=== PATIENT | male | born 1950 | race Caucasian/White ===

== ENCOUNTER 2020-03-01 07:39 | Emergency (ER) | payer OTHER ==
[~2020-03-01] VITALS: Ht 185.4 cm; Wt 108.9 kg
[~2020-03-01 07:39] MED LIST: CODE30; DIGOX250 MCG PO; LOPE2C PO; Lyrica25 MG PO; METO25ER; ONDA4 PO; Synthroid25 MCG PO; WARF5 PO; WARF7.5 PO
[2020-03-01 08:14] LABS: BASOPHILS ABSOLUTE AUTO 0.03 K/mm3 (0.00-0.23); BASOPHILS PERCENT AUTO 1 % (0-2); EOSINOPHILS ABSOLUTE AUTO 0.13 K/mm3 (0.00-0.68); EOSINOPHILS PERCENT AUTO 2 % (0-6); Hematocrit 39.7 % (37.0-53.0); Hemoglobin 12.6 g/dL (13.5-17.5); IMMATURE GRAN ABSOLUTE AUTO 0.02 K/mm3 (0.00-0.10); IMMATURE GRAN PERCENT AUTO 0 % (0-1); LYMPHOCYTES ABSOLUTE AUTO 0.82 K/mm3 (0.84-5.20); LYMPHOCYTES PERCENT AUTO 15 % (21-46); MONOCYTES ABSOLUTE AUTO 0.49 K/mm3 (0.16-1.47); MONOCYTES PERCENT AUTO 9 % (4-13); Mean Corpuscular HGB 31.3 pg (26.0-34.0); Mean Corpuscular HGB Conc 31.7 g/dL (31.5-36.5); Mean Corpuscular Volume 99 fL (80-100); Mean Platelet Volume 11.3 fL (9.1-12.4); NEUTROPHILS ABSOLUTE AUTO 4.14 K/mm3 (1.96-9.15); NEUTROPHILS PERCENT AUTO 74 % (41-73); Platelet Count 104 K/mm3 (150-400); RDW Coefficient Variation 14.4 % (11.7-14.2); Red Blood Cell Count 4.03 M/mm3 (4.30-5.90); White Blood Cell Count 5.63 K/mm3 (4.00-11.30)
[2020-03-01 08:34] LABS: Prothrombin Time Results 40.3 Sec (9.7-11.5)
[2020-03-01 08:38] LABS: International Normalized Ratio 4.08
== END 2020-03-01 11:58 | disposition home or self-care (01) ==
LOC: ER 07:39
PROVIDERS: Emergency Medicine
DX: K91.840 Postprocedural hemorrhage of a digestive system organ or structure following a digestive system procedure (principal); R79.1 Abnormal coagulation profile; Y84.8 Other medical procedures as the cause of abnormal reaction of the patient, or of later complication, without mention of misadventure at the time of the procedure; I48.91 Unspecified atrial fibrillation; F17.200 Nicotine dependence, unspecified, uncomplicated; Z79.01 Long term (current) use of anticoagulants; Z79.899 Other long term (current) drug therapy
CPT/HCPCS: 36415; 64400; 85025; 85610; 99283-25

== ENCOUNTER 2020-09-02 11:46 | Emergency (ER) | payer OTHER, MEDICARE ==
[~2020-09-02] VITALS: Ht 185.4 cm; Wt 108.9 kg
[2020-09-02 12:57] LABS: BASOPHILS ABSOLUTE AUTO 0.02 K/mm3 (0.00-0.23); BASOPHILS PERCENT AUTO 0 % (0-2); EOSINOPHILS ABSOLUTE AUTO 0.01 K/mm3 (0.00-0.68); EOSINOPHILS PERCENT AUTO 0 % (0-6); Hematocrit 40.1 % (37.0-53.0); Hemoglobin 13.8 g/dL (13.5-17.5); IMMATURE GRAN ABSOLUTE AUTO 0.06 K/mm3 (0.00-0.10); IMMATURE GRAN PERCENT AUTO 1 % (0-1); LYMPHOCYTES ABSOLUTE AUTO 0.82 K/mm3 (0.84-5.20); LYMPHOCYTES PERCENT AUTO 10 % (21-46); MONOCYTES ABSOLUTE AUTO 0.86 K/mm3 (0.16-1.47); MONOCYTES PERCENT AUTO 11 % (4-13); Mean Corpuscular HGB 31.3 pg (26.0-34.0); Mean Corpuscular HGB Conc 34.4 g/dL (31.5-36.5); Mean Corpuscular Volume 91 fL (80-100); Mean Platelet Volume 12.5 fL (9.1-12.4); NEUTROPHILS ABSOLUTE AUTO 6.24 K/mm3 (1.96-9.15); NEUTROPHILS PERCENT AUTO 78 % (41-73); Platelet Count 116 K/mm3 (150-400); RDW Coefficient Variation 15.5 % (11.7-14.2); RDW Standard Deviation 51.9 fL (35.1-46.3); Red Blood Cell Count 4.41 M/mm3 (4.30-5.90); White Blood Cell Count 8.01 K/mm3 (4.00-11.30)
[2020-09-02 12:58] LABS: Creatine Kinase MB 3.7 ng/mL (0.0-3.6); Creatine Kinase MB Index 1.7 (0.0-4.0); Troponin I 0.058 ng/mL (0.000-0.040)
[2020-09-02 13:06] LABS: Albumin, Blood 3.9 g/dL (3.4-5.0); Albumin/Globulin Ratio 1.2 (0.8-1.8); Calcium, Blood 8.3 mg/dL (8.5-10.1); Creatinine, Blood 13.4 mg/dL (0.60-1.20); Globulin, Blood 3.3 g/dL (2.2-4.0); Potassium, Blood 4.1 mmol/L (3.5-5.5); Total Protein, Blood 7.2 g/dL (6.4-8.2)
[2020-09-02] MEDS ORDERED: Prinivil10 MG PO (13:41)
[2020-09-02] MEDS ORDERED: METO25 PO (13:41)
[2020-09-02] MEDS ORDERED: LANOXIN125 MCG PO (13:41)
[2020-09-02] MEDS ORDERED: VITAMIN D31000 UNI1 PO (13:41)
[2020-09-02] MEDS ORDERED: TRAZ50 PO (13:42)
[2020-09-02] MEDS ORDERED: PREG150 PO (13:42)
[2020-09-02] MEDS ORDERED: ZOLOFT100 M1 PO (13:42)
[2020-09-02] MEDS ORDERED: WARF5 PO (13:43)
[2020-09-02] MEDS ORDERED: Synthroid200 MCG PO (13:44)
[2020-09-02] MEDS ORDERED: NITR.4SL SL (13:44)
[2020-09-02] MEDS ORDERED: Vitamin B Comple1 EA PO (13:44)
[2020-09-02 13:54] LABS: Prothrombin Time Results >90.0 Sec (9.7-11.5)
[2020-09-02 13:56] LABS: International Normalized Ratio >10.00
[2020-09-02 14:33] LABS: Source, Urine Clean Catch
[2020-09-02 16:26] LABS: Appearance, Urine Hazy (Clear); Blood, Urine 3+ (Neg); Color, Urine Amber (P-Yellow); Glucose Qualitative, Urine Neg (Neg); Ketones, Urine 1+ (Neg); Leukocyte Esterase, Urine 1+ (Neg); Nitrite, Urine Neg (Neg); Protein, Urine 2+ (Neg); Urobilinogen, Urine 1+ (Normal)
[2020-09-02 17:27] LABS: Bilirubin, Urine 1+ (Neg)
[2020-09-02 17:31] LABS: Bacteria Few /hpf; Squamous Epithelial Cells Few /hpf (Few)
[2020-09-02 18:22] LABS: Hematocrit 37.7 % (37.0-53.0); Hemoglobin 12.6 g/dL (13.5-17.5); Mean Corpuscular HGB 30.5 pg (26.0-34.0); Mean Corpuscular HGB Conc 33.4 g/dL (31.5-36.5); Mean Corpuscular Volume 91 fL (80-100); Platelet Count 103 K/mm3 (150-400); RDW Coefficient Variation 15.8 % (11.7-14.2); RDW Standard Deviation 53.1 fL (35.1-46.3); Red Blood Cell Count 4.13 M/mm3 (4.30-5.90); White Blood Cell Count 5.86 K/mm3 (4.00-11.30)
[2020-09-02 18:29] LABS: Base Excess Venous -9.3 mmol/L; Bicarbonate Venous 17.8 mmol/L (24.0-30.0); PO2 Venous 176 mmHg (38-42); pH Blood Venous 7.29 (7.34-7.37)
[2020-09-02 19:13] LABS: International Normalized Ratio >10.00; Prothrombin Time Results >90.0 Sec (9.7-11.5)
[2020-09-02 19:43] LABS: Creatine Kinase MB 5.1 ng/mL (0.0-3.6)
[2020-09-02 19:55] LABS: Albumin, Blood 3.5 g/dL (3.4-5.0); Albumin/Globulin Ratio 1.1 (0.8-1.8); Bilirubin, Total 1.1 mg/dL (0.1-1.0); Bun/Creatinine Ratio 10.3 (12.0-20.0); Calcium, Blood 7.8 mg/dL (8.5-10.1); Creatinine, Blood 11.5 mg/dL (0.60-1.20); Globulin, Blood 3.2 g/dL (2.2-4.0); Total Protein, Blood 6.7 g/dL (6.4-8.2)
[2020-09-02 21:01] LABS: Digoxin (Lanoxin) 0.12 ug/mL (0.80-2.00)
[2020-09-02 21:49] LABS: SARS-Cov-2 (COVID-19) PCR, MMC NEGATIVE (NEGATIVE)
== END 2020-09-02 22:43 | disposition short-term general hospital (02) ==
LOC: ER 11:46
PROVIDERS: Emergency Medicine; Internal Medicine; Nurse Practitioner Acute Care
DX: N17.9 Acute kidney failure, unspecified (principal); R79.1 Abnormal coagulation profile; I48.91 Unspecified atrial fibrillation; K92.2 Gastrointestinal hemorrhage, unspecified; R31.9 Hematuria, unspecified; Z79.01 Long term (current) use of anticoagulants; Z79.899 Other long term (current) drug therapy; Z20.822 Contact with and (suspected) exposure to COVID-19
CPT/HCPCS: 36415; 51702; 70450; 71045; 72125; 76770; 80053; 80162; 81001; 82272; 82550; 82553; 82803; 83605; 83735; 84100; 84484; 84550; 85025; 85027; 85610; 85730; 86900; 86901; 87086; 93005; 93010; 96361-59; 96374-59; 99285-25; A9270; C9113; J3430; J7030; P9059; U0004

== ENCOUNTER 2020-10-01 22:27 | Emergency (ER) | payer OTHER ==
[~2020-10-01] VITALS: Ht 185.4 cm; Wt 108.9 kg
[~2020-10-01 22:27] MED LIST changes: +LANOXIN125 MCG PO; +METO25 PO; +NITR.4SL SL; +PREG150 PO; +Prinivil10 MG PO; +Synthroid200 MCG PO; +TRAZ50 PO; +VITAMIN D31000 UNI1 PO; +Vitamin B Comple1 EA PO; +ZOLOFT100 M1 PO
[2020-10-01] MEDS ORDERED: PANT40 (23:05)
[2020-10-01] MEDS ORDERED: METR500 (23:05)
[2020-10-01] MEDS ORDERED: LORA.5 PO (23:06)
[2020-10-01] MEDS ORDERED: BACL10 PO (23:07)
[2020-10-01] MEDS ORDERED: OXAYDO5 M1 PO (23:08)
[2020-10-02 00:27] LABS: International Normalized Ratio 5.29
== END 2020-10-02 01:23 | disposition home or self-care (01) ==
LOC: ER 22:27
PROVIDERS: Student in an Organized Health Care Education/Training Program
DX: R79.1 Abnormal coagulation profile (principal); I10 Essential (primary) hypertension; F17.200 Nicotine dependence, unspecified, uncomplicated; E03.9 Hypothyroidism, unspecified; Z88.8 Allergy status to other drugs, medicaments and biological substances; Z79.890 Hormone replacement therapy; I48.91 Unspecified atrial fibrillation; Z79.01 Long term (current) use of anticoagulants; Z79.899 Other long term (current) drug therapy
CPT/HCPCS: 36415; 85610; 99283

== ENCOUNTER 2021-09-06 18:34 | Inpatient (IN) | payer OTHER ==
[~2021-09-06] VITALS: Ht 182.9 cm; Wt 95.3 kg
[~2021-09-06 18:34] MED LIST changes: +BACL10 PO; +LORA.5 PO; +METR500; +OXAYDO5 M1 PO; +PANT40
[2021-09-06 19:13] LABS: BASOPHILS ABSOLUTE AUTO 0.05 K/mm3 (0.00-0.23); BASOPHILS PERCENT AUTO 1 % (0-2); EOSINOPHILS ABSOLUTE AUTO 0.21 K/mm3 (0.00-0.68); EOSINOPHILS PERCENT AUTO 4 % (0-6); Hematocrit 50.9 % (37.0-53.0); Hemoglobin 16.1 g/dL (13.5-17.5); IMMATURE GRAN ABSOLUTE AUTO 0.01 K/mm3 (0.00-0.10); IMMATURE GRAN PERCENT AUTO 0 % (0-1); LYMPHOCYTES ABSOLUTE AUTO 1.43 K/mm3 (0.84-5.20); LYMPHOCYTES PERCENT AUTO 28 % (21-46); MONOCYTES PERCENT AUTO 14 % (4-13); Mean Corpuscular HGB 27.9 pg (26.0-34.0); Mean Corpuscular HGB Conc 31.6 g/dL (31.5-36.5); Mean Corpuscular Volume 88 fL (80-100); Mean Platelet Volume 9.8 fL (9.1-12.4); NEUTROPHILS ABSOLUTE AUTO 2.74 K/mm3 (1.96-9.15); NEUTROPHILS PERCENT AUTO 53 % (41-73); Platelet Count 155 K/mm3 (150-400); RDW Coefficient Variation 16.6 % (11.7-14.2); RDW Standard Deviation 53.6 fL (35.1-46.3); Red Blood Cell Count 5.77 M/mm3 (4.30-5.90); White Blood Cell Count 5.14 K/mm3 (4.00-11.30)
[2021-09-06 19:28] LABS: Alanine Aminotransfer (ALT/SGP 19 U/L (12-78); Albumin, Blood 4.3 g/dL (3.4-5.0); Albumin/Globulin Ratio 1.2 (0.8-1.8); Alk Phos 153 U/L (50-136); Anion Gap 5 mmol/L (6-16); Aspartate Aminotrans (AST/SGOT 26 U/L (12-37); Bilirubin, Total 0.9 mg/dL (0.1-1.0); Blood Urea Nitrogen 13 mg/dL (8-24); Bun/Creatinine Ratio 17.1 (12.0-20.0); CO2, Blood 31 mmol/L (21-32); Calcium, Blood 9.5 mg/dL (8.5-10.1); Chloride, Blood 103 mmol/L (98-108); Creatinine, Blood 0.76 mg/dL (0.60-1.20); Ethanol (Alcohol), Blood, Med <3 mg/dL; Globulin, Blood 3.7 g/dL (2.2-4.0); Glomerular Filtration Rate 97 (60-); Glucose, Blood 114 mg/dL (70-99); Potassium, Blood 3.7 mmol/L (3.5-5.5); Sodium, Blood 139 mmol/L (136-145)
[2021-09-06 19:56] LABS: International Normalized Ratio 3.59; Prothrombin Time Results 34.7 Sec (9.7-11.5)
[2021-09-06 20:17] LABS: Influenza A, PCR NEGATIVE (NEGATIVE); Influenza B, PCR NEGATIVE (NEGATIVE); Resp Syncytial Virus, PCR NEGATIVE (NEGATIVE)
[2021-09-06 20:23] LABS: SARS-Cov-2 (COVID-19) PCR, MMC POSITIVE (NEGATIVE)
[2021-09-06 20:36] LABS: Source, Urine Foley catheter
[2021-09-06 20:38] LABS: Bilirubin, Urine Neg (Neg); Blood, Urine 3+ (Neg); Glucose Qualitative, Urine Neg (Neg); Ketones, Urine Neg (Neg); Leukocyte Esterase, Urine Neg (Neg); Nitrite, Urine Neg (Neg); Protein, Urine 4+ (Neg); Urobilinogen, Urine NORM (Normal)
[2021-09-06 20:51] LABS: Appearance, Urine Clear (Clear); Color, Urine Yellow (P-Yellow)
[2021-09-06 20:52] LABS: Amorphous Light (0-Heavy); Bacteria Not Seen /hpf; Mucus Light (0-Heavy); Squamous Epithelial Cells Not Seen /hpf (Few); White Blood Cells, Urine Not Seen /hpf (0-5)
[2021-09-06 22:30] LABS: CHOL/HDL RATIO 3.6; Cholesterol 175 mg/dL (50-200); HDL Cholesterol 49 mg/dL (>39); LDL/HDL RATIO 2.1; Low Density Lipoprotein Chol 103 mg/dL (0-110); Triglycerides 113 mg/dL (30-160); Very Low Density Lipoprot Chol 22 mg/dL (6-32)
--- NOTE | 2021-09-06 23:20 | NUR ---
PATIENT ARRIVED TO ICU 12 ON PORTABLE VENT WITH RT AND BEDSIDE. PATIENT TRANSFERRED TO ICU BED WITH SLIDER SHEET AND PLACED ON ICU MONITORS, AND PLACED ON VET BY RT. ETT IN PLACE WITH VENT SET AC/VC+ 14, TV 500, PEEP 5, FIO2 TITRATING DOWN TO 25% ABRASIONS SEEN TO BOTTOM LIP AND TIP OF NOSE, BLOODY ORAL SECRETIONS. PROPOFOL 40 MCG AND CARDIZEM 5 MG/HR INFUSING FROM ED. PATIENT MOVING BOTH ARMS AND BOTH LEGS TO STIMULI, NOT OPENING EYES AND NOT FOLLOWING DIRECTIONS. SHERRI BUT SLUGGISH.
[2021-09-07 03:36] LABS: PCO2 Arterial 36.9 mmHg (35-45); pH Blood Arterial 7.52 (7.35-7.45)
[2021-09-07] MEDS ORDERED: HYDCHL25 PO (03:36)
[2021-09-07] MEDS ORDERED: POTA10T PO (03:37)
[2021-09-07 03:38] LABS: PO2 Arterial 282 mmHg (80-100)
[2021-09-07] MEDS ORDERED: PREG150 PO (03:38)
[2021-09-07 04:49] LABS: BASOPHILS ABSOLUTE AUTO 0.01 K/mm3 (0.00-0.23); BASOPHILS PERCENT AUTO 0 % (0-2); EOSINOPHILS ABSOLUTE AUTO 0.01 K/mm3 (0.00-0.68); EOSINOPHILS PERCENT AUTO 0 % (0-6); Hematocrit 44.5 % (37.0-53.0); Hemoglobin 14.7 g/dL (13.5-17.5); IMMATURE GRAN ABSOLUTE AUTO 0.01 K/mm3 (0.00-0.10); IMMATURE GRAN PERCENT AUTO 0 % (0-1); LYMPHOCYTES ABSOLUTE AUTO 0.58 K/mm3 (0.84-5.20); LYMPHOCYTES PERCENT AUTO 9 % (21-46); MONOCYTES ABSOLUTE AUTO 0.35 K/mm3 (0.16-1.47); MONOCYTES PERCENT AUTO 6 % (4-13); Mean Corpuscular HGB 28.6 pg (26.0-34.0); Mean Corpuscular Volume 87 fL (80-100); Mean Platelet Volume 10.4 fL (9.1-12.4); NEUTROPHILS ABSOLUTE AUTO 5.29 K/mm3 (1.96-9.15); NEUTROPHILS PERCENT AUTO 85 % (41-73); Platelet Count 171 K/mm3 (150-400); RDW Coefficient Variation 16.8 % (11.7-14.2); RDW Standard Deviation 53.1 fL (35.1-46.3); Red Blood Cell Count 5.14 M/mm3 (4.30-5.90); White Blood Cell Count 6.25 K/mm3 (4.00-11.30)
[2021-09-07 05:10] LABS: Albumin, Blood 3.6 g/dL (3.4-5.0); Albumin/Globulin Ratio 1.2 (0.8-1.8); Bilirubin, Total 1.1 mg/dL (0.1-1.0); Bun/Creatinine Ratio 15.8 (12.0-20.0); Creatinine, Blood 0.89 mg/dL (0.60-1.20); Potassium, Blood 3.9 mmol/L (3.5-5.5); Total Protein, Blood 6.6 g/dL (6.4-8.2)
--- NOTE | 2021-09-07 06:30 | NUR ---
SUMMARY PATIENT REMAINS INTUBATED AND SEDATED WITH PROPOFOL 40 MCG, CONTINUES TO KEEP EYES CLOSED, REACHING FOR ETT WITH BOTH HANDS, PULLING AWAY FROM PAIN, BUT NOT FOLLOWING DIRECTIONS. VENT AC/VC+ 14, TV 500, PEEP 5, FIO2 25% SUCTIONING CLEAR TO WHITE SPUTUM VIA ETT. LARGE AMT OF CLEAR ORAL SECRETIONS OCCASIONALLY WITH BLOODY SECRETIONS. ABRASION TO LIP IS NOW SCABBED. OG PLACED TO LIS DRAINING BROWN BILE. CARDIZEM DRIP REMAINS OFF AFIB CONTINUES RATE 80'S.
--- NOTE | 2021-09-07 08:30 | NUR ---
ASSUMED CARE REPORT FROM DENISSE RAINEY AT 0700. PT INTUBATED AND SEDATED. VENT SETTINGS AC/VC+ 14/500/0.9/5/25%. LUNGS CLEAR. SCANT THIN WHITE SECRETIONS THROUGH ETT, MODERATE CLEAR ORAL SECRETIONS. PROPOFOL GTT FOR SEDATION. PT GRIMACES c CARE, PULLS ON RESTRAINTS BILATERALLY, MORE ON RIGHT. COUGH/GAG/SWALLOW REFLEX. DOES NOT FOLLOW DIRECTIONS. AFIB ON MONITOR, RATE 80'S. BP STABLE. OGT CLAMPED AFTER MED ADM. ABD SOFT, ROUND, NON TENDER. BT X 4. VALDES PATENT, DRAINING CLEAR YELLOW URINE TO GRAVITY. WILL CONTINUE TO MONITOR.
[2021-09-07] MEDS ORDERED: HYDPAM25 (10:30)
[2021-09-07] MEDS ORDERED: DULO30 PO (10:30)
--- NOTE | 2021-09-07 17:24 | NUR ---
SHIFT SUMMARY NO ACUTE CHANGES THIS SHIFT. REMAINS INTUBATED AND SEDATED. VENT SETTINGS AC/VC+ 14/500/0.9/5/25%. LUNGS CLEAR. SECRETIONS DECREASED THROUGHOUT SHIFT. SPUTUM SENT TO LAB. PROPOFOL GTT FOR SEDATION. WHEN SEDATION LIGHTENED, PT PULLS ON RESTRAINTS, DOES NOT FOLLOW COMMANDS. MAE. SCHILLING c CARE. CHRIS. AFIB ON MONITOR, RATE 80'S, BP STABLE. TUBE FEEDS STARTED THIS SHIFT, VHP 25 ML/HR c 30 ML FLUSHES q 4, GOAL 55 ML/HR. VALDES PATENT, DRAINING SALBADOR URINE TO GRAVITY. WILL CONTINUE TO MONITOR UNTIL REPORT TO ONCOMING NURSE.
--- NOTE | 2021-09-07 20:14 | NUR ---
Assumed care. Report received from anne RAINEY. Pt in bed, sedated and ventilated via ETT. Vent settings: AC/VC+ 14/500/5/25%. OG tube in place, TF at 25 ml/hr. PG in KEL, IV access in L/wrist and R/wrist. IV pumps running Propofol at 50 mcg/kg/min and NS at 10 ml/hr. Crane catheter in place, draining to gravity. SWB restraints in place. VS stable, no acute needs ATT. Will continue to monitor.
[2021-09-08 04:33] LABS: International Normalized Ratio 2.67; Prothrombin Time Results 26.3 Sec (9.7-11.5)
[2021-09-08 04:56] LABS: Calcium, Blood 9.3 mg/dL (8.5-10.1); Creatinine, Blood 0.95 mg/dL (0.60-1.20); Magnesium, Blood 2.3 mg/dL (1.6-2.4); Phosphorus, Blood 3.1 mg/dL (2.5-4.9); Potassium, Blood 3.3 mmol/L (3.5-5.5)
[2021-09-08 05:37] LABS: PCO2 Arterial 34.5 mmHg (35-45); PO2 Arterial 82.4 mmHg (80-100); pH Blood Arterial 7.54 (7.35-7.45)
--- NOTE | 2021-09-08 06:37 | NUR ---
Shift summary. Pt continues in bed, sedated and ventilated. No changes to vent settings during shift. Pt sedation put on standby for RT wean this am, see RT note. OG tube in place, TF at 25 ml/hr. Propofol at 25 mcg/kg/min, NS tko. 300 out of vera this shift, dark/cloudy. See shift assessment for further details. Will continue to monitor and report off to dayshift RN.
--- NOTE | 2021-09-08 11:02 | NUR ---
PRESSURE SUPPORT DR FRIED AT BEDSIDE. PLACED PT ON PRESSURE SUPPORT 12/02, FIO2 35%. PROPOFOL INFUSING AT 20 MCG/KG/MIN.
--- NOTE | 2021-09-08 14:38 | NUR ---
RESTLESS PT BECOMING INCREASINGLY RESTLESS, THRASHING HEAD SIDE TO SIDE. HR INCREASED TO 140'S WITH AGITATION. DR FRIED NOTIFIED. PT PLACED BACK ON AC VENT SETTINGS AND INCREASED PROPOFOL TO 25 MCG/KG/MIN. PT TOLERATING VENT WELL AT THIS TIME. WILL CONTINUE TO MONITOR.
--- NOTE | 2021-09-08 17:21 | NUR ---
SHIFT SUMMARY NO ACUTE CHANGES THIS SHIFT. SBT DONE THIS AM. WHEN OFF SEDATION PT IS ALERT AND LOOKS AROUND THE ROOM. PT DOES NOT TRACK OR FOLLOW ANY DIRECTIONS. PT WITHDRAWS TO NOXIOUS STIMULI. PT BECOMES RESTLESS AND THRASHES IN BED WHEN OFF SEDATION FOR EXTENDED PERIOD OF TIME. PT WITH PROPOFOL INFUSING AT 25 MCG/KG/MIN AT THIS TIME. PT DID WELL ON PRESSURE SUPPORT TRIAL FOR ABOUT 3 HOURS THIS SHIFT. PT HAS REMAINED ON VENT SETTINGS AC 14, TV 500, PEEP 5, FIO2 35% THE REST OF THE SHIFT. PT WITH MODERATE AMOUNT OF THICK, YOUNGBLOOD ETT SECRETIONS. OGT IN PLACE WITH TF INFUSING AT 60 ML/HR GOAL RATE. VALDES TEMP PROBE REMAINS IN PLACE WITH DARK, CLOUDY, YELLOW URINE OUTPUT. NO FAMILY VISITORS OR CALLS IN THIS SHIFT. SBW RESTRAINTS REMAIN IN PLACE. PT WITH EPISODE OF AFIB WITH HR UP TO 140'S WHEN RESTLESS, OTHERWISE VITAL SIGNS STABLE. WILL CONTINUE TO MONITOR AND REPORT OFF TO ONCOMING RN.
--- NOTE | 2021-09-08 19:03 | NUR ---
Assumed care. Report received from anne RAINEY. Pt in bed on ventilator, vent settings: AC/VC+ 14/500/5/25%. Sedated on propofol at 25 mcg/kg/min, NS at tko rate. OG tube in place, TF at goal rate 60 ml/hr. Crane catheter in place. SWB restraints in place. VS stable, no acute needs ATT. Will continue to monitor.
[2021-09-09 04:21] LABS: BASOPHILS ABSOLUTE AUTO 0.01 K/mm3 (0.00-0.23); BASOPHILS PERCENT AUTO 0 % (0-2); EOSINOPHILS PERCENT AUTO 0 % (0-6); Hematocrit 44.9 % (37.0-53.0); Hemoglobin 14.6 g/dL (13.5-17.5); IMMATURE GRAN ABSOLUTE AUTO 0.05 K/mm3 (0.00-0.10); IMMATURE GRAN PERCENT AUTO 1 % (0-1); LYMPHOCYTES ABSOLUTE AUTO 0.82 K/mm3 (0.84-5.20); LYMPHOCYTES PERCENT AUTO 8 % (21-46); MONOCYTES ABSOLUTE AUTO 1.05 K/mm3 (0.16-1.47); MONOCYTES PERCENT AUTO 10 % (4-13); Mean Corpuscular HGB 28.1 pg (26.0-34.0); Mean Corpuscular HGB Conc 32.5 g/dL (31.5-36.5); Mean Corpuscular Volume 87 fL (80-100); Mean Platelet Volume 10.5 fL (9.1-12.4); NEUTROPHILS ABSOLUTE AUTO 8.83 K/mm3 (1.96-9.15); NEUTROPHILS PERCENT AUTO 82 % (41-73); Platelet Count 160 K/mm3 (150-400); RDW Standard Deviation 53.9 fL (35.1-46.3); Red Blood Cell Count 5.19 M/mm3 (4.30-5.90); White Blood Cell Count 10.76 K/mm3 (4.00-11.30)
[2021-09-09 04:29] LABS: International Normalized Ratio 1.88; Prothrombin Time Results 18.9 Sec (9.7-11.5)
[2021-09-09 04:45] LABS: Bun/Creatinine Ratio 25.8 (12.0-20.0); Calcium, Blood 8.7 mg/dL (8.5-10.1); Creatinine, Blood 0.85 mg/dL (0.60-1.20); Magnesium, Blood 2.1 mg/dL (1.6-2.4); Phosphorus, Blood 2.6 mg/dL (2.5-4.9); Potassium, Blood 3.6 mmol/L (3.5-5.5)
--- NOTE | 2021-09-09 06:47 | NUR ---
Shift summary. Pt continues in bed, on sedation and ventilator. No changes this shift to vent settings. Propofol at 25 mcg/kg/min, NS tko, vancomycin currently infusing. OG tube in place, TF at goal rate 60 ml/hr. Crane catheter in place, 600 mls dark urine w/sediment out this shift. VS stable, see assessment for further details. Will continue to monitor and report off to dayshift RN
--- NOTE | 2021-09-09 07:00 | NUR ---
ASSUME CARE: I have assumed care of this patient.
--- NOTE | 2021-09-09 10:06 | NUR ---
SBT: pt placed on spontaneous
--- NOTE | 2021-09-09 11:20 | NUR ---
EXTUBATION/REASSESSMENT: Pt extubated at 11:10 to 2L NC. He has a strong cough and seems to be managing his secretions well. Left facial droop noted with tongue deviation to the right. Speech slurred. Pt was reoriented and is asking appropriate questions. He is following commands. Weakness noted throughout although RUE appears stronger.
[2021-09-09 13:38] LABS: Vancomycin, Trough 16.9 ug/mL (5.0-10.0)
--- NOTE | 2021-09-09 13:55 | NUR ---
PLACENTIA JAIL: [place] crisis manager called for update on pt status; RN provided only pertitnent information.
--- NOTE | 2021-09-09 18:22 | NUR ---
SHIFT SUMMARY: Pt extubated this morning to 2L NC. CT head completed this afternoon. NEURO: pt alert to self and location. He is confused and requires frequent reorientation. Left sided facial droop with right tongue deviation noted. Left sided neglect also found on exam. Pt worked with PT/OT today to get back into bed from chair. With walker and gaitbelt, pt is a one person assist. CARDIAC: afib on monitor, rate up to 130 before PO metoprolol. BP stable RESPIRATORY: extubated this AM. now on RA with SpO2 in low 90s. Strong cough GI/: temp prob vera in place with 1250 out. No BM today. Bedside swallow screen successful. He was given his pills in apple sauce without issue. PSYCH/SOCIAL: pt's sister called today and was given update with pt's permission.
--- NOTE | 2021-09-09 19:53 | NUR ---
Assumed care. Report received from anne RAINEY. Pt resting in bed, on room air. PG in KEL, saline locked. Crane catheter in place. VS stable, pt denies any needs at this time. Will continue to monitor.
[2021-09-10 04:00] LABS: BASOPHILS ABSOLUTE AUTO 0.01 K/mm3 (0.00-0.23); BASOPHILS PERCENT AUTO 0 % (0-2); EOSINOPHILS PERCENT AUTO 0 % (0-6); Hematocrit 43.8 % (37.0-53.0); IMMATURE GRAN ABSOLUTE AUTO 0.05 K/mm3 (0.00-0.10); IMMATURE GRAN PERCENT AUTO 1 % (0-1); LYMPHOCYTES ABSOLUTE AUTO 0.81 K/mm3 (0.84-5.20); LYMPHOCYTES PERCENT AUTO 9 % (21-46); MONOCYTES ABSOLUTE AUTO 0.85 K/mm3 (0.16-1.47); MONOCYTES PERCENT AUTO 10 % (4-13); Mean Corpuscular HGB 27.9 pg (26.0-34.0); Mean Corpuscular Volume 87 fL (80-100); Mean Platelet Volume 10.2 fL (9.1-12.4); NEUTROPHILS ABSOLUTE AUTO 7.21 K/mm3 (1.96-9.15); NEUTROPHILS PERCENT AUTO 81 % (41-73); Platelet Count 138 K/mm3 (150-400); RDW Coefficient Variation 16.5 % (11.7-14.2); RDW Standard Deviation 52.3 fL (35.1-46.3); Red Blood Cell Count 5.02 M/mm3 (4.30-5.90); White Blood Cell Count 8.93 K/mm3 (4.00-11.30)
[2021-09-10 04:12] LABS: International Normalized Ratio 1.56; Prothrombin Time Results 15.9 Sec (9.7-11.5)
[2021-09-10 04:14] LABS: Bun/Creatinine Ratio 26.1 (12.0-20.0); Calcium, Blood 8.9 mg/dL (8.5-10.1); Creatinine, Blood 0.81 mg/dL (0.60-1.20); Magnesium, Blood 1.9 mg/dL (1.6-2.4); Potassium, Blood 3.8 mmol/L (3.5-5.5)
--- NOTE | 2021-09-10 06:32 | NUR ---
Shift summary. Pt rested in bed throughout shift. No acute events, vital signs stable. Pt independent in bed, alert and oriented. See shift assessment for further details. Will continue to monitor and report off to dayshift RN.
--- NOTE | 2021-09-10 07:11 | NUR ---
ASSUME CARE: I have assumed care of this patient.
--- NOTE | 2021-09-10 11:00 | NUR ---
Spiritual Care Visit. Pt. is sitting up in a chair and welcomes my visit. Pt. is unsettled about the affect of his stroke on his memory. Theraputically listen with a calming presence. Pt. displays evidence of a pleasant spirit and a motivation to excel at his rehab and PT. Establish rapport. Prayed with Pt. Pt. verbalized gratitude for the spiritual care visit, and requested this staffing manager to return.
--- NOTE | 2021-09-10 18:06 | NUR ---
SHIFT SUMMARY: Pt transferred to medical status today. NEURO: pt forgetful and slightly impulsive. He is alert and oriented to person, place, month, year, and event. He has been up to the chair several times with standby assist. ST/PT/OT in to work with pt today. CARDIAC: afib on coumadin. lovenox was also started today for dvt prophylaxis due to subtherapeutic coumadin levels. RESPIRATORY: CTA on RA GI/: diet advanced to pureed. pt notes that he does not enjoy the pureed foods. hes been snacking on apple sauce, ensure, and ice creams. Medium, hard BM today. Crane in place and draining beba urine to gravity. PSYCH/SOCIAL: pt very pleasant and using humor while interacting with staff.
--- NOTE | 2021-09-10 18:57 | NUR ---
PT AOX3 AND COOPERATIVE IF CARE. PT ORIENTED TO ROOM AND CALL LIGHT PLACED WITHIN REACH. VALDES WORKING WELL WILL CONTINUE TO MONITOR.
[2021-09-11 04:57] LABS: BASOPHILS ABSOLUTE AUTO 0.01 K/mm3 (0.00-0.23); BASOPHILS PERCENT AUTO 0 % (0-2); EOSINOPHILS PERCENT AUTO 0 % (0-6); Hematocrit 43.6 % (37.0-53.0); Hemoglobin 14.3 g/dL (13.5-17.5); IMMATURE GRAN ABSOLUTE AUTO 0.05 K/mm3 (0.00-0.10); IMMATURE GRAN PERCENT AUTO 1 % (0-1); LYMPHOCYTES ABSOLUTE AUTO 0.78 K/mm3 (0.84-5.20); LYMPHOCYTES PERCENT AUTO 12 % (21-46); MONOCYTES ABSOLUTE AUTO 0.71 K/mm3 (0.16-1.47); MONOCYTES PERCENT AUTO 11 % (4-13); Mean Corpuscular HGB 28.3 pg (26.0-34.0); Mean Corpuscular HGB Conc 32.8 g/dL (31.5-36.5); Mean Corpuscular Volume 86 fL (80-100); Mean Platelet Volume 10.3 fL (9.1-12.4); NEUTROPHILS ABSOLUTE AUTO 4.73 K/mm3 (1.96-9.15); NEUTROPHILS PERCENT AUTO 75 % (41-73); Platelet Count 148 K/mm3 (150-400); RDW Standard Deviation 50.3 fL (35.1-46.3); Red Blood Cell Count 5.05 M/mm3 (4.30-5.90); White Blood Cell Count 6.28 K/mm3 (4.00-11.30)
[2021-09-11 05:11] LABS: International Normalized Ratio 1.53; Prothrombin Time Results 15.6 Sec (9.7-11.5)
[2021-09-11 05:17] LABS: Bun/Creatinine Ratio 24.7 (12.0-20.0); Calcium, Blood 8.8 mg/dL (8.5-10.1); Creatinine, Blood 0.81 mg/dL (0.60-1.20); Magnesium, Blood 2.2 mg/dL (1.6-2.4); Phosphorus, Blood 3.7 mg/dL (2.5-4.9); Potassium, Blood 3.7 mmol/L (3.5-5.5)
--- NOTE | 2021-09-11 05:36 | NUR ---
SHIFT SUMMARY NOC: PT ALERT TO SELF, PLACE, AND REASON WHY HE IS IN HOSPITAL, INTERMITTENTLY CONFUSED. MILD RIGHT SIDED WEAKNESS, STRONG REST ROOM MATRON STRENGTH, MOVES ALL EXTREMITIES. PT COMPLIANT AND INTERESTED IN CARE. VALDES IN PLACE DRAINING CLEAR YELLOW URINE. NO ACUTE EVENTS
--- NOTE | 2021-09-11 19:15 | NUR ---
PT REGAINING STRENGTH. PHYSICAL THERAPY WORKED WITH JAVIER TODAY AND REPORTED INTERMITTENT ATAXIA TO THE LEFT LEG, BUT PT IS ABLE TO INDEPENDENTLY MOVE IN THE ROOM. RN REQUESTED PT CALL STAFF FOR SAFETY AND FALL PREVENENTION. RN CHANGED LUER LOCK CAPS ON POWERGLIDE. PT ABLE TO FEED HIMSELF INDEPENDENTLY. SPEECH IS SLOW TO RESPOND. PT CAN BECOME FRUSTRATED WHEN HE IS UNABLE TO EXPRESS HIS IDEAS. OVERALL, ABLE TO COMMUNICATE IN FULL SENTENCES WITHOUT SLURRING. ROOM AIR. WRIST GRASPS EQUAL BILATERAL. RN WILL GIVE REPORT TO NIGHT NURSE.
[2021-09-12 05:27] LABS: International Normalized Ratio 1.89
--- NOTE | 2021-09-12 05:49 | NUR ---
SHIFT SUMMARY NOC: A&O*3-4 MOMENTS OF EXPRESSIVE APHASIA/CONFUSION. PT MORE ALERT THIS SHIFT. NO RESIDUAL WEAKNESS. STRATEGIES ANALYST STRENGTH STRONG. PT COMPLIANT WITH CARE AND PLAN. NO ACUTE EVENTS.
--- NOTE | 2021-09-12 18:32 | NUR ---
PT IS A/OX4, PLEASANT AND COOPERATIVE. 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 THE PT IS UP WITH STANDBY ASSIST. THE PT AMBULATED OUT THROUGH THE [facility] TODAY USEING THE FWW. THE PT WAS MEDICATED FOR GARCIA PAIN X1 TODAY. VALDES CATHERTER REMOVED THIS AFTERNOON. THE PT HAS LEFT ARM SWELLING AND BRUISING. ICE PACK WAS APPLIED AND THE PT ELEVATED HIS ARM ON A PILLOW. CALL LIGHT IN REACH WILL CONTINUE TO MONITOR AND ASSESS FOR CHANGES
--- NOTE | 2021-09-13 05:15 | NUR ---
SHIFT SUMMARY A/O X3, PT CONFUSED AND REPETATIVE AT TIMES. PLEASANT AND COOPERATIVE W/ CARE. VITAL SIGNS STABLE. NO PAIN REPORTED THROUGHOUT SHIFT. VOIDED POST VALDES REMOVAL. SBA FROM CHAIR TO BED. L ARM APPEARS MORE SWOLLEN THIS AM, HEAT APPLIED PER ORDERS. WILL CONTINUE TO MONITOR AND REPORT TO ONCOMING RN.
[2021-09-13 05:56] LABS: BASOPHILS ABSOLUTE AUTO 0.03 K/mm3 (0.00-0.23); BASOPHILS PERCENT AUTO 1 % (0-2); EOSINOPHILS ABSOLUTE AUTO 0.11 K/mm3 (0.00-0.68); EOSINOPHILS PERCENT AUTO 2 % (0-6); Hematocrit 43.3 % (37.0-53.0); Hemoglobin 14.3 g/dL (13.5-17.5); IMMATURE GRAN ABSOLUTE AUTO 0.07 K/mm3 (0.00-0.10); IMMATURE GRAN PERCENT AUTO 1 % (0-1); LYMPHOCYTES ABSOLUTE AUTO 0.82 K/mm3 (0.84-5.20); LYMPHOCYTES PERCENT AUTO 16 % (21-46); MONOCYTES ABSOLUTE AUTO 0.62 K/mm3 (0.16-1.47); MONOCYTES PERCENT AUTO 12 % (4-13); Mean Corpuscular HGB 28.9 pg (26.0-34.0); Mean Corpuscular Volume 88 fL (80-100); Mean Platelet Volume 10.7 fL (9.1-12.4); NEUTROPHILS ABSOLUTE AUTO 3.61 K/mm3 (1.96-9.15); NEUTROPHILS PERCENT AUTO 69 % (41-73); Platelet Count 161 K/mm3 (150-400); RDW Standard Deviation 49.6 fL (35.1-46.3); Red Blood Cell Count 4.94 M/mm3 (4.30-5.90); White Blood Cell Count 5.26 K/mm3 (4.00-11.30)
[2021-09-13 06:09] LABS: International Normalized Ratio 2.12; Prothrombin Time Results 21.2 Sec (9.7-11.5)
[2021-09-13 06:15] LABS: Bun/Creatinine Ratio 20.6 (12.0-20.0); Calcium, Blood 8.9 mg/dL (8.5-10.1); Creatinine, Blood 0.73 mg/dL (0.60-1.20); Potassium, Blood 4.2 mmol/L (3.5-5.5)
--- NOTE | 2021-09-13 18:46 | NUR ---
PT IS A/OX3, PLEASANT AND COOPERATIVE. THE PT CONTINUES TO HAVE WHAT SEEMS TO BE SHORT TERM MEMORY DEFICITS. THE PT WAS ENCOURAGED TO ELEVATE AND APPLY HEAT TO HIS LEFT ARM HEATOMA T/O THE DAY.THE PT WAS UP IND IN THE ROOM TO THE BED AND THE CHAIR. THE PT DENIED ANY PAIN. PT APPEARS TO BE BREATHING EASILY ON RA. THE PT WAS UP IN THE CHAIR FOR ALL MEALS. CALL LIGHT IN REACH,
[2021-09-13] MEDS ORDERED: ALEVAZOL56.7 G1 TOP (23:02)
[2021-09-13] MEDS ORDERED: ENOXAPARIN150 MG/1 M SC (23:04)
--- NOTE | 2021-09-14 04:26 | NUR ---
SUMMARY: PT A/OX3, IS PLEASANT AND COOPERATIVE W/CARE AND CALLS APPROPRIATELY TO SPECIFY NEEDS. HE STILL APPEARS TO HAVE SOME SHORT TERM MEMORY ISSUES, REPEATING HIMSELF AND ASKING SAME QUESTIONS BUT REMINDER PROVIDED PRN. WRAPPED KPAD IN PLACE TO L.ARM HEMATOMA. OXACILLIN RECIEVED PER EMAR AND PT TO BEGIN AUGMENTIN TODAY. HE WAS UP W/ASSIST AND USED URINAL INDEPENDENTLY. HE DENIES PAIN AND ALL OTHER COMPLAINTS. NO ACUTE CHANGES, VSS/AFEBRILE. WCTM AND REPORT TO DAY RN.
[2021-09-14 06:50] LABS: International Normalized Ratio 1.75; Prothrombin Time Results 17.7 Sec (9.7-11.5)
--- NOTE | 2021-09-14 16:37 | NUR ---
PT IS A/OX3, PLEASANT AND COOPERATIVE. THE PT CONTINUES TO HAVE WHAT SEEMS TO BE SHORT TERM MEMORT WITH POSSIBLE SOME IMPROVEMENT TODAY COMPARED TO YESTERDAY. THE PT CONTINUES TO HAVE A LARGE HEMATOMA ON THE LEFT ARM PT ENCOURAGED TO APPLY HEAT AND ELEVATE THE ARM. THE PT WAS UP AMBULATING IN THE [facility] TODAY USEING THE FWW APPROPRIATLY PT BREATHING EASILY ON RA. CALL LIGHT IN REACH. WILL CONTINUE TO MONITOR AND ASSESS FOR CHANGES. PT SISTER CALLED EARLIER. I TRIED TO RETURN THE CALL TO 2 DIFFERENT PHONE NUMBERS AND A MESSAGE WAS LEFT ON HER CELL PHONE
--- NOTE | 2021-09-15 05:41 | NUR ---
SUMMARY: PT A/OX3 BUT CONT'S TO EXHIBIT SHORT TERM MEMORY ISSUES, FREQUENTLY REPEATING SELF AND ASKING THE SAME QUESTIONS. REMINDERS PROVIDED PRN. HE'S ABLE TO SPECIFY NEEDS, USE URINAL INDEPENDENTLY AND IS UP AD MARY IN ROOM. LARGE L.ARM HEMATOMA PERSISTS BUT IT IS IMPROVED W/KPAD AND ELEVATION. NO ACUTE CHANGES, VSS/AFEBRILE. ASSISTED LIVING PLACEMENT RECOMMENDED AND PENDING. WCTM AND REPORT TO DAY RN.
[2021-09-15 07:17] LABS: International Normalized Ratio 1.28; Prothrombin Time Results 13.2 Sec (9.7-11.5)
--- NOTE | 2021-09-15 16:42 | NUR ---
PT AxOx3-4 WITH INTERM FORGETFULNESS AND MILDLY ANXIOUS BEHAVIOR. PATIENT WORKED WITH PT, OT, AND ST THIS SHIFT. PT STATES HE IS "FEELING A LOT BETTER." PT GIVEN SHOWER THIS SHIFT. L ARM HEMATOMA LIGHTLY PRESSURE WRAPPED AND ICED. DIET ADVANCED TO SOFT BITE SIZE FOOD. PT DENIES ANY PAIN. PT CURRENTLY SITTING IN CHAIR WITH CALL LIGHT IN REACH. PT DENIES DYSPNEA, BREATHING WITHOUT DIFFICULTY ON RA. VITALS REVIEWED.
--- NOTE | 2021-09-16 04:59 | NUR ---
SHIFT SUMMARY 70 YR M ADMITTED ON 09/06/21 FOR CVA. FULL CODE. COVID POSITIVE. NO ACUTE CHANGES THIS SHIFT. PT APPEARS TO BE CONFUSED AT TIMES AND SEEMS TO GET A BIT FRUSTRATED WITH HIMSELF WHEN HE SAYS SOMETHING "WRONG". HE IS VERY FRIENDLY AND LIKES TO CHAT. HE APPEARS TO BE LONELY. HE IS EAGER TO CONTINUE ON WITH PT/OT AND TO GET BETTER EACH DAY.
[2021-09-16 05:32] LABS: International Normalized Ratio 1.28; Prothrombin Time Results 13.2 Sec (9.7-11.5)
--- NOTE | 2021-09-16 17:22 | NUR ---
PATIENT A/OX3, FORGETFUL AT TIMES AND REPEATS HIMSELF. ISOLATION D/C'D TODAY. PATIENT WAS ABLE TO WALK IN HALLS WITH A SBA. INDEPENDENT IN ROOM. DENIES ANY PAIN. VSS, ON RA. TOLERATING SOFT DIET. POWERGLIDE TO KEL WNL AND SL. PLEASANT AND COOPERATIVE WITH CARE, ABLE TO MAKE NEEDS KNOWN. AWAITING PLACEMENT.
--- NOTE | 2021-09-17 05:41 | NUR ---
SHIFT SUMMARY 70 YR M ADMITTED ON 09/06/21 FOR CVA. FULL CODE. PT HAS SOME COGNITIVE DEFICIT A RESUT OF THE CVA. HE IS PLEASANTLY CONFUSED BUT QUITE PLEASANT AND FULLY COOPERATIVE IN HIS CARE. 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 POWERGLIDE IN RIGHT ARM WAS A BIT DIFFICULT FLUSHING AND WOULD NOT DRAW. PT WAS TAKEN OFF OF ISOLATION PRECAUTIONS PREVIOUS SHIFT AND IS HAPPY TO BE ABLE TO AMBULATE IN THE HALLWAY.
[2021-09-17 06:08] LABS: International Normalized Ratio 1.52; Prothrombin Time Results 15.5 Sec (9.7-11.5)
[2021-09-17] MEDS ORDERED: ACETAZOLAMIDE PO (11:22)
--- NOTE | 2021-09-17 12:23 | NUR ---
Spiritual Care Visit. Pt. is awake in bed and welcomes my visit. Pt. is pleasant and informed about his condition and care. Listen empatathically. Pt. displays evidence of being motivated in recovery and engaged with the new options that will be presented to him. Pt. has an optimisitic demeanor and is grateful for the care he has recieved. Prayed with Pt. Pt. verbalized gratitude for the spiritual care visit. Pt. also verbalized a request that this space control supervisor contact his adopted parents in [place].
--- NOTE | 2021-09-17 16:19 | NUR ---
NO ACUTE CHANGES THIS SHIFT, PATIENT AWAITING PLACEMENT. UP AMBULATING IN HALLS WITH SBA. TYLENOL GIVEN X1 TODAY FOR A HEADACHE WITH STATED RELEIF. VSS, ON RA. ADVANCED BY ST TO REGULAR DIET, TAKES PILLS WHOLE WITH WATER. NO NEW CONCERNS THIS SHIFT.
[2021-09-18 05:40] LABS: International Normalized Ratio 1.58; Prothrombin Time Results 16.1 Sec (9.7-11.5)
--- NOTE | 2021-09-18 05:49 | NUR ---
SHIFT SUMMARY 70 YR M ADMITTED ON 09/06/21 FOR CVA. FULL CODE. NO ACUTE CHANGES THIS SHIFT. HE IS INDEPENDANT IN THE ROOM AND IS VERY FRIENDLY AND TALKATIVE. HE DOES HAVE SOME COGNITIVE DEFICIT AND SEEMS TO GET EMBARASSED WHEN HE GETS CONFUSED. HE IS COOPERATIVE WITH CARE AND IS LOOKING FORWARD TO PLACEMENT. HE STATES THAT HE DOES NOT THINK HE IS GOING BACK TO [facility] BECAUSE IT IS TOO EXPENSIVE.
--- NOTE | 2021-09-18 18:20 | NUR ---
DAYSHIFT SUMMARY Patient doing well today, no changes to status. Patient OOB for all meals, worked with occupational therapy, trying to perform all ADLs independently with minimal assist. Patients forgetful at times, he wanted a shower, and discussed plan with patient, 10 minutes later patient called to tell staff he wanted a shower, he forget that we had just discussed plan. Vitals stable.
--- NOTE | 2021-09-19 03:51 | NUR ---
AT START OF SHIFT PT A/OX4 AND NOTED AT TIMES HAVING A HARD TIME FINDING WORDS. AROUND MIDNIGHT PT INCREASINGLY CONFUSED. PT IS AWARE THAT HE IS CONFUSED AND FRUSTRATED HE EASILY FORGETS WHAT IT IS HE IS WANTING OR NEEDING TO DO. PT PRESSING ALL THE BUTTONS ON THE CALL LIGHT AND WHEN ASKED IF HE NEEDED ASSISTANCE HE STATES HE WANTS TO FIND THE TV GUIDE. PT PROVIDED A PAPER COPY AND EXPLAINED WE DON'T HAVE ANY GUIDES ON THE SCREEN HOWEVER IMMEDIATELY PT BACK TO PRESSING CHANNELS AND NOT REALLY LOOKING A GUIDE PROVIDED. PT AWAKE MAJORITY OF THE NIGHT. PT THEN FIXATED ON CALLING SOMEONE AND WANTING TO REACH THE MEDICAL TRANSCRIPTION EDITOR. PT STATES HE CAN NOT REMEMBER WHO IT IS HE IS TRYING TO CALL AND AKNOWLEDGES THAT HIM CONSTANTLY THINKING ABOUT THIS IS ONLY MAKING HIM FRUSTRATED. PT VERBALIZES THAT HIS MIND IS NOT THE SAME BEFORE THE STROKE AND IS HAVING A HARD TIME ACCEPTING HIS CURRENT STATUS. PT ENCOURAGE TO GET SOME SLEEP WHOMEVER HE IS TRYING TO CALL IS PROBABLY ASLEEP AT THIS TIME. PT GIVEN PAPER AND PEN TO WRITE DOWN THE NAME OF WHOM HE IS TRYING TO CALL IN CASE HE REMEMBERS LATER ON. PT DID AMBULATE THE [facility] WITH RAILROAD COMMISSIONER. OTHERWISE NO NEW CHANGES NOTED THIS SHIFT.
[2021-09-19 06:48] LABS: International Normalized Ratio 1.66; Prothrombin Time Results 16.9 Sec (9.7-11.5)
--- NOTE | 2021-09-19 18:32 | NUR ---
DAYSHIFT SUMMARY Patient doing well, no acute changes to patient status, awaiting placement. Walked halls with staff, supervision. Vitals stable.
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
[2021-09-20 05:43] LABS: International Normalized Ratio 1.71; Prothrombin Time Results 17.3 Sec (9.7-11.5)
--- NOTE | 2021-09-20 05:48 | NUR ---
PT FRANCINE TO GET SOME REST AFTER PREVIOUS RN NOTE. HE WAS NOTED TO BE MORE CALM DURING MORNING MED PASS. HE STATES HE WAS FINALLY FRANCINE TO RELAX AFTER A WHILE HOWEVER STILL REQUESTING TO SPEAK TO A THERAPIST/INJECTION PRESS OPERATOR. PT W/O ANY OTHER NEW CONCERS.
--- NOTE | 2021-09-20 16:36 | NUR ---
SHIFT SUMMARY PT AxOx3-4 WITH INTERMITTENT MILD CONFUSION/FORGETFULNESS. PT SELF PROCLAIMS WHEN HE IS FEELING COGNITIVE DEFICITS. PT WILL OFTEN REPEAT HIMSELF AND/OR CORRECT HIMSELF WHEN HIS "THINKING IS OFF." PT REPORTED FEELING VERY ANXIOUS AND PARANOID LAST NOC, BUT SO FAR, NOTHING LIKE THAT DURING DAY SHIFT. PT REPORTS GARCIA. MEDICATED PER EMAR. PT CURRENTLY RESTING IN BED WITH CALL LIGHT IN REACH. VITALS REVIEWED. CURRENT DC PLAN IS BEING RECONSIDERED FOR PLACEMENT OR HOME WITH HOME HEALTH.
[2021-09-21 06:02] LABS: International Normalized Ratio 1.99
--- NOTE | 2021-09-21 07:32 | NUR ---
PT HAD A BETTER NIGHT LAST NIGHT. PT FRANCINE TO SLEEP T/O MAJORITY OF THE NIGHT. PT DID VERBALIZED FEELING ANXIOUS AND STATED HE WOULD SPEAK WITH MD TODAY ABOUT STARTING HIM ON AN ANXIETY MED. PT VERY FORGETFUL AND WITH FLIGHT OF IDEAS. VERY PLEASANT AND INDEPENDENT IN ROOM.
--- NOTE | 2021-09-21 17:53 | NUR ---
SHIFT SUMMARY PT WORKED WITH SPEECH THERAPY AND FAILED HIS MENTAL EXAM TODAY. PT HAS BEEN VERY FIXATED ON THIS SINCE IT OCCURED. PT ALSO WORKED WITH OCCUPATIONAL THERAPY TODAY. IND IN ROOM. SUPERVISION IN THE HALLWAY WITH AMBULATION. PT FOUND IN ROOM LYING ON BED, UNCOVERED IN ONLY A BREIF. WHEN ASKED WHAT HE WAS DOING, THE PT STATED HE WAS PREPARING FOR THE HEAT OF THE DAY. THIS RN THEN COVERED THE PT WITH A SHEET. PT ABLE TO ANSWER SIMPLE QUESTIONS, BUT QUITE CONFUSED AND FORGETFUL. THIS RN HAD TO REORIENT THE PT TO WHAT HAPPENED AND WHY HE IS BACK IN THE HOSPITAL. NO OTHER ACUTE CHANGES IN ASSESSMENT AT THIS TIME. BUSPAR STARTED TODAY. CALL LIGHT IN REACH. PT UP IN ROOM, EATING DINNER.
[2021-09-22 07:28] LABS: International Normalized Ratio 2.09; Prothrombin Time Results 20.9 Sec (9.7-11.5)
--- NOTE | 2021-09-22 18:36 | NUR ---
SHIFT SUMMARY PT WORKED WITH OT/PT TODAY. AMBULATING IN ROOM INDEPENDENTLY. SUPERVISION IN HALLWAY. PT GETS DISTRACTED VERY EASILY. NO OTHER ACUTE CHANGES IN ASSESSMENT AT THIS TIME. VS REVIEWED. PT UP IN RECLINER. CALL LIGHT IN REACH. DENIES OTHER NEEDS AT THIS TIME.
--- NOTE | 2021-09-23 05:45 | NUR ---
PT OVERNIGHT WITH NO NEW COMPLAINS. CONTINUES TO BE INTERMITTENT CONFUSED AND VERY FORGETFUL. PT IS VERY PLEASNAT AND FRANCINE TO SLEEP T/O NIGHT. PT C/O PAIN TO LEFT ARM AND MEDICATED PER APR. PT ALSO C/O EXCESSIVE GAS AND REQUESTING SIMETHICONE. PT INDEPENDENT IN ROOM.
[2021-09-23 05:55] LABS: International Normalized Ratio 2.08; Prothrombin Time Results 20.8 Sec (9.7-11.5)
--- NOTE | 2021-09-23 18:38 | NUR ---
SHIFT SUMMARY NO ACUTE CHANGES THIS SHIFT. PT IS A/O X2-3 AND HAS PERIODIC FORGETFULNESS. HE CONTINUES TO AWAIT PLACEMENT. BP SOFT THIS AM AND MORNING BP MEDICATIONS HELD. PT WORKED WELL WITH PHYSICAL AND OCCUPATIONAL THERAPY. WILL REPORT TO QUINTEN RAINEY.
[2021-09-24 06:01] LABS: International Normalized Ratio 2.4; Prothrombin Time Results 23.8 Sec (9.7-11.5)
--- NOTE | 2021-09-24 06:15 | NUR ---
OVERNIGHT PT C/O LEFT SIDED TOOTH AND GUM PAIN. ON ASSESSMENT PT WITH VERY POOR DENTITION AND ONLY TOOTH ON LEFT UPPER SIDE OF MOUTH NOTED TO BE DECAYED. PT REQUESTING ADDITIONAL PAIN MEDICATION AND WANTING TO KNOW IF A DENTAL CONSUTL CAN BE DONE WHILE IN PT. MADE AWARE WITH ORDER FOR TRAMADOL 50 MG x1 DOSE. PT MEDICATED AND FRANCINE TO SLEEP FOR A LITTLE. PT ALSO ASKING IF HIS PROBIOTIC AND POWERGLIDE CAN BE D/C. WILL ENDROSE TO MORNING RN FOR DAY HOSPITALIST TO ADDRESS. PT IS NOTED TO BE ANXIOUS REGARDING HIS TOOTH/GUM PAIN AND STRONGLY WANTING TO DISCUSS THIS DURING MD MORNING ROUNDS.
--- NOTE | 2021-09-24 16:41 | NUR ---
SHIFT SUMMARY PATIENT IS ALERT AND ORIENTED. PLEASENT AND COOPERATIVE WITH CARE. PATIENT HAS COMPLAINED OF PAIN RT HEADACHE AND TOOTH PAIN. POWERGLIDE REMOVED WNL PER PATIENT REQUEST, DR AGUILAR APPROVED. PATIENT HAS NOT COMPLAINED OF SOB, NAUSEA, VOMITTING THIS SHIFT. BED IN LOCKED AND LOWEST POSITION. CALL LIGHT IN PLACE. WILL MONITOR UNTIL SHIFT CHANGE.
--- NOTE | 2021-09-25 04:32 | NUR ---
SHIFT SUMMARY ADMITTED FOR [facility]. FULL CODE. STUDENT COUNSELOR CAREGIVER REQUIRED. POWERGLIDE IN RUE. INDEPENDENT IN ROOM. ON RA. REGULAR DIET. TYLENOL GIVEN FOR DENTAL PAIN. NO IV ACCESS. CONTINENT. PT IS ANXIOUS. PREVIOUSLY LIVED AT [facility], CANNOT RETURN DUE TO CAREGIVER REQUIREMENTS.
[2021-09-25 05:30] LABS: International Normalized Ratio 2.74; Prothrombin Time Results 26.9 Sec (9.7-11.5)
--- NOTE | 2021-09-25 16:58 | NUR ---
SHIFT SUMMARY PATIENT IS ALERT AND ORIENTED BUT FORGETFUL. PATIENT IS IND IN ROOM AND HALLWAYS. PATIENT HAS BEEN PLEASENT AND COOPERATIVE WITH CARE THIS SHIFT. VITAL SIGNS REVIEWED. PATIENT HAS COMPLAINED OF TOOTH/HEADACHE THIS SHIFT AND GAS PAIN, MEDICATED PER EMAR. PATIENT HAS HAD NO ACUTE EVENTS THIS SHIFT. BED IN LOCKED AND LOWEST POSITION. CALL LIGHT IN PLACE. WILL MONITOR UNTIL SHIFT CHANGE.
--- NOTE | 2021-09-26 05:10 | NUR ---
SHIFT SUMMARY 70 YR M ADMITTED SINCE 09/06/21 AND AWAITING PLACEMENT. FULL CODE. NO ACUTE CHANGES THIS SHIFT. PT HAS BEEN AMBULATING INDEPENDANTLY IN THE HALLS AND IS VERY PLEASANT AND POLITE TO OTHERS. HE STATED TO THIS NURSE THAT HE IS WORRIED ABOUT A FEW THINGS THAT HE NEEDS TO TAKE CARE OF. HE STATED THAT HE WAS TOLD BY CASE MANAGEMENT THAT HE WOULD BE HAVING A CONSULTATION W/ AN ORAL SURGEON. THIS NURSE EXPLAINED TO HIM THAT THIS WAS UNLIKELY TO HAPPEN IN THE HOSPITAL AND THAT AN APPT COULD BE MADE ONCE HE FINDS PLACEMENT. NOTHING WAS SEEN IN HIS NOTED TO INDICATE THAT THIS ISSUE HAS BEEN ADDRESSED. PT SEEMS ANXIOUS TO FIND PLACEMENT AND GET SETTLED.
[2021-09-26 06:12] LABS: International Normalized Ratio 2.56; Prothrombin Time Results 25.3 Sec (9.7-11.5)
--- NOTE | 2021-09-26 18:06 | NUR ---
PT HAS BEEN STABLE THIS SHIFT. PT CONT TO HAVE SLIGHT LEFT SIDED WEAKNESS AND FACIAL DROOP. INDEP IN ROOM AND HALLWAY. PT STILL HAVING DIFFICULTY FINDING WORDS DURING CONVERSATION, BUT A+O. SWALLOWS WELL. ANTHONY DIET. DENIES PAIN. VOIDING WELL. BM THIS AM. HEMATOMA TO LEFT ARM IMPROVING PER PATIENT. AWAITING PLACEMENT AT DISCHARGE.
[2021-09-27 05:57] LABS: International Normalized Ratio 2.49; Prothrombin Time Results 24.6 Sec (9.7-11.5)
--- NOTE | 2021-09-27 07:30 | NUR ---
ASSUMED CARE: PT RESTING QUIETLY AT THIS TIME. NO ACUTE NEEDS OR CONCERNS.
--- NOTE | 2021-09-27 18:17 | NUR ---
SHIFT SUMMARY: PT AMBULATORY IN HALLS. DENIES NEEDS OR CONCERNS. AWAITING PLACEMENT, DR HARPER REPORTS [facility].
--- NOTE | 2021-09-28 05:16 | NUR ---
SHIFT SUMMARY 70 YR M ADMITTED SINCE 09/06/21. FULL CODE. PT IS CURRENTLY AWAITING PLACEMENT AT [facility]. HE HAS NO ACUTE MEDICAL ISSUES AT THIS TIME. HE IS PLEASANT TO DEAL WITH AND HE LIKES TO WALK AROUND THE UNIT. HE ACTUALLY SPENDS ALOT OF TIME AMBULATING IN THE HALLWAYS.
[2021-09-28 06:19] LABS: International Normalized Ratio 2.4; Prothrombin Time Results 23.8 Sec (9.7-11.5)
--- NOTE | 2021-09-28 09:02 | NUR ---
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
--- NOTE | 2021-09-28 18:36 | NUR ---
pt has been ambulating in the halls today, sits in his chair when in room, very pleasant and grateful for care, no complaints, call light in reach.
[2021-09-29 06:05] LABS: International Normalized Ratio 2.62; Prothrombin Time Results 25.8 Sec (9.7-11.5)
--- NOTE | 2021-09-29 06:20 | NUR ---
PT REMAINS STABLE FOR D/C. AWAITING PLACEMENT. OF NOTE...PT UNHAPPY WITH DAILY LAB DRAWS, STATING "I THINK THEY NEED TO GIVE PATIENT THOSE IV'S THAT YOU CAN DRAW BLOOD FROM". NO OTHER ISSUES NOTED.
--- NOTE | 2021-09-29 18:21 | NUR ---
SHIFT SUMMARY PT TRANSFERED TO ROOM 327 FROM ICU THIS AFTERNOON. PT ORIENTED TO ROOM AND UNIT. PT IND IN ROOM & SHOWERED UPON ARRIVAL TO UNIT. GIVEN 9 UNITS OF INSULIN THIS AFTERNOON. PT NOW RESTING IN BED, EATING DINNER AFTER GOING FOR A WALK.
--- NOTE | 2021-09-29 18:30 | NUR ---
SHIFT SUMMARY PT AWAITING PLACEMENT. CARE MANAGMENT WORKING ON THIS. PT AMBULATING HALLWAYS OFTEN INDEPENDENTLY. PT DID GOT ON ONE WALK WITH AN AIDE DOWNSTAIRS TO GO OUTSIDE. BRUISING TO PTS L ARM INPROVING FROM LAST WEEK WHEN THIS RN TOOK CARE OF HIM. NO OTHER ACUTE CHANGES IN ASSESSMENT AT THIS TIME. VS REVIEWED. CALL LIGHT ON BED. PT CURRENTLY ON A WALK IN THE HALLWAY.
[2021-09-30 05:47] LABS: International Normalized Ratio 2.65; Prothrombin Time Results 26.1 Sec (9.7-11.5)
--- NOTE | 2021-09-30 06:23 | NUR ---
PATIENT WAS ANXIOUS AND AGITATED THROUGHOUT THE SHIFT. PATIENT REQUESTED A SLEEP AID EARLY ON; THIS RN RECEIVED AN ORDER FOR 5MG OF MELATONIN. PATIENT REMAINED AWAKE, AND AT APPROX 0245, PT EXITED HIS ROOM, AND VOICED HIS FRUSTRATION REGARDING HIS SLEEP DEPRIVATION. THIS RN AGAIN CALLED THE HOSPITALIST AND RECEIVED AN ORDER FOR AMBIEN 5MG PO PRN AT BEDTIME. THE ORDERED SLEEP AID WAS GIVEN TO THE PATIENT WITH LITTLE EFFECT. ASIDE FROM THIS, THE PATIENT REMAINS STABLE FOR D/C AND IS AWAITING PLACEMENT.
--- NOTE | 2021-09-30 12:24 | NUR ---
Spiritual Care Visit. Pt. is in the doorway standing with his walker and welcomes my visit. Pt. is pleasant and is waiting for PT. Re-establish rapport and facilitate a Life review. Pt. verbalizes that he has good support from an adopted sister in the [place] area. Pt. displays evidence of being a motivated Pt. When PT arrived, this sterile processing tech excused himself
--- NOTE | 2021-09-30 17:06 | NUR ---
DAYSHIFT SUMMARY No acute changes to patient status, patient worked with therapy today. Coordinator from [facility] came today to interview patient, facility wants to accept patient to [facility]. Patient very excited & emotional and this news. Vitals stable.
--- NOTE | 2021-09-30 23:40 | NUR ---
2026 PT SITTING ON EDGE BED, REPORTS HEADACHE OF 2/10, GAVE TYLENOL, WILL EVAL FOR EFFECT. PT HAS SCABS ON UE'S AND LE'S AND BRUISES, A SOFT LUMP ON LFA THAT IS NOT NEW. TRACE EDEMA IN LE'S. DECLINES TO WEAR SCD'S. DENIES NEED FOR ANYTHING ELSE AT THIS TIME. NO OTHER APPARENT SIGNS OF DISTRESS. CALL LIGHT IS IN REACH.
--- NOTE | 2021-09-30 23:59 | NUR ---
PT IS AMBULATING IN HALLWAY INDEPENDENTLY WITH WALKER. NO APPARENT SIGNS OF DISTRESS.
--- NOTE | 2021-10-01 01:58 | NUR ---
PT REQUESTED AND RECIEVED GAS RELIEF MEDICATION, WILL EVAL FOR EFFECT. NO OTHER APPARENT SIGNS OF DISTRESS. CALL LIGHT IS IN REACH. PT DENIES NEED FOR ANYTHING ELSE AT THIS TIME.
--- NOTE | 2021-10-01 03:35 | NUR ---
PT LYING IN BED, EYES CLOSED, APPEARS TO BE RESTING, BREATHING IS EVEN, UNLABORED. NO APPARENT SIGNS OF DISTRESS. CALL LIGHT IS IN REACH.
--- NOTE | 2021-10-01 04:06 | NUR ---
PT AAO X 4, ON RA. DECLINES SCD'S. PT REPORTED A HEADACHE, GOT TYLENOL AT HS. PT HAS INSOMNIA, GOT AMBIEN AT HS. PT LIKE TO AMBULATE IN THE HALLWAYS A LOT. SCABS AND BRUISING ON LE'S AND UE'S. SOFT LUMP ON LFA.
--- NOTE | 2021-10-01 05:49 | NUR ---
PT AMBULATING IN HALLWAYS. NO APPARENT SIGNS OF DISTRESS. NO OTHER CHANGES THIS SHIFT.
[2021-10-01 06:02] LABS: International Normalized Ratio 2.83; Prothrombin Time Results 27.8 Sec (9.7-11.5)
--- NOTE | 2021-10-01 13:19 | NUR ---
Spiritual care Visit with Pt. in hallway Pt. has been walking the halls with his walker and was in the 3rd floor waiting area when I stopped to visit with him. Pt. is pleasant and motivated for the next steps in his recovery. The Pt. verbalized his progress compared to "his first stroke." The Pt. was unsettled about the potential transfer to [facility]. Normalized the Pt. experience. Pt. displayed evidence of engagement and understanding. Pt. verbalized gratitude for the spiritual care visit.
--- NOTE | 2021-10-01 15:13 | NUR ---
Spiritual Care Visit. - Pt. request Pt. requested spiritual care and welcomed my reponse. Pt. is anxious and agitated over his perception of conflicting information regarding discharge plans. Pt. verbalized that had been told that he had been approved for [facility] (or another penitentiary facility) , but was later told that he had not been approved. Listened empatheticaly with a calming presence. Nurse arrived to provide medications. Gave pastoral scholarship counselor to help normalize the Pt. experience and modify expectations. Pt. displayed evidence of reduced anxiety. Prayed with pt. Pt. verbalized gratitude for the quick response from spiritual care.
--- NOTE | 2021-10-01 16:49 | NUR ---
DAYSHIFT SUMMARY Patient doing well with ADLs, walks independetly around unit with FWW. Patient continues to struggle with identifying locations, patient reads signs on lee & room #, communicates needs appropriately but then will quickly forget what he asked for. Patient met with medicare, & coordinator from [facility]. Patient became frusterated and anxious, he is upset that he is being told he is too independent for keno terminal operator care, but he know he struggles with his memory. PRN Hydroxzine given for anxiety, and spiritual care to talk to patient. No other conerns at this time, awaiting placement.
[2021-10-02 06:02] LABS: International Normalized Ratio 2.42
--- NOTE | 2021-10-02 07:28 | NUR ---
PATIENT WAS AWAKE FOR THE ENTIRE SHIFT. PATIENT BECAME CONFRONTATIONAL WITH THIS RN REGARDING MANY DIFFERENT THINGS, DISPLAYING A DISJOINTED THOUGHT PROCESS. ALL ATTEMPTS TO APPEASE THE PATIENT WERE UNSUCCESSFUL. SLEEP DEPRIVATION HAVING AN EXTREME IMPACT ON AN ALREADY IMPAIRED COGNITION. ALL CONCERNS RELAYED TO ONCOMING RN.
[2021-10-02 14:44] LABS: BASOPHILS ABSOLUTE AUTO 0.03 K/mm3 (0.00-0.23); BASOPHILS PERCENT AUTO 1 % (0-2); EOSINOPHILS ABSOLUTE AUTO 0.26 K/mm3 (0.00-0.68); EOSINOPHILS PERCENT AUTO 7 % (0-6); Hematocrit 40.1 % (37.0-53.0); Hemoglobin 13.2 g/dL (13.5-17.5); IMMATURE GRAN PERCENT AUTO 0 % (0-1); LYMPHOCYTES ABSOLUTE AUTO 0.61 K/mm3 (0.84-5.20); LYMPHOCYTES PERCENT AUTO 17 % (21-46); MONOCYTES ABSOLUTE AUTO 0.49 K/mm3 (0.16-1.47); MONOCYTES PERCENT AUTO 14 % (4-13); Mean Corpuscular HGB 30.3 pg (26.0-34.0); Mean Corpuscular HGB Conc 32.9 g/dL (31.5-36.5); Mean Corpuscular Volume 92 fL (80-100); Mean Platelet Volume 11.1 fL (9.1-12.4); NEUTROPHILS ABSOLUTE AUTO 2.23 K/mm3 (1.96-9.15); NEUTROPHILS PERCENT AUTO 62 % (41-73); Platelet Count 151 K/mm3 (150-400); RDW Coefficient Variation 15.9 % (11.7-14.2); RDW Standard Deviation 53.9 fL (35.1-46.3); Red Blood Cell Count 4.36 M/mm3 (4.30-5.90); White Blood Cell Count 3.62 K/mm3 (4.00-11.30)
[2021-10-02 15:13] LABS: Albumin, Blood 3.7 g/dL (3.4-5.0); Anion Gap 4 mmol/L (6-16); Blood Urea Nitrogen 20 mg/dL (8-24); Bun/Creatinine Ratio 27.1 (12.0-20.0); CO2, Blood 34 mmol/L (21-32); Chloride, Blood 104 mmol/L (98-108); Creatinine, Blood 0.74 mg/dL (0.60-1.20); Digoxin (Lanoxin) 0.76 ug/mL (0.80-2.00); Glomerular Filtration Rate 97 (60-); Glucose, Blood 70 mg/dL (70-99); Potassium, Blood 3.8 mmol/L (3.5-5.5); Sodium, Blood 142 mmol/L (136-145)
--- NOTE | 2021-10-02 17:47 | NUR ---
Review of patient symptoms with nursing. pt out walking. Sturrgling with anexiety and worry. Reccomend lashaeien be removed due to untword symptoms and pt age. Gave nurse strategies to help aroma therapy. kasi schulte sent volunteer to see him . They spent forty five minutes talking. Will see if we can get him dog therapy. pt has medical backround will see if we can get something for him to do as diversion. May benefit from going outside.
--- NOTE | 2021-10-02 18:06 | NUR ---
DAYSHIFT SUMMARY Patient doing well this shift, cooperative & pleasant. Spent the day walking the hallways. Patient tried to take a nap to rest, but did not sleep today. Palliative care at bedside talking with patient. Dig labs drawn, results 0.76, no med changes. Geovany ROLON'd & Trazodone ordered for HS tonight. Increased confusion observed today, patient entered the wrong patient room, able to redirect. Vitals stable.
[2021-10-03 05:25] LABS: International Normalized Ratio 2.29; Prothrombin Time Results 22.8 Sec (9.7-11.5)
--- NOTE | 2021-10-03 06:17 | NUR ---
SHIFT SUMMARY PATIENT ALERT AND ORIENTED. MEDICATED PER EMAR FOR PAIN. NO COMPLAINTS OF SHORTNESS OF BREATH. NO ACUTE ISSUES NOTED OVERNIGHT. CALL LIGHT WITHIN REACH. REPORT GIVEN TO ONCOMING RN.
--- NOTE | 2021-10-03 12:34 | NUR ---
NURSE NOTE PATIENT STATED TO MYSELF AND CHARGE NURSE ABOUT SUICIDIAL IDEATIONS AND INCREASED DEPRESSION. RELAYED THIS INFORMATION TO . THIS RN PUT IN A PROVIDER CONSULT, TUBED INFORMATION TO ED. ASKED DR ABOUT MEDICATION POSSIBILITY FOR DEPRESSION.
--- NOTE | 2021-10-03 13:40 | NUR ---
Call back - Pt reports some depression and pinpoints it from his length of stay in the hospital. Pt explains at least one small business sales representative from a local facility has reported he would quailify for their facility. We discuss options he would hope happen. He expresses probability his sister would take him. Pt appears unclear on what he desires, other than wanting to be independent as possible. Helped pt identify multiple positives in his life at this time. Empathic listening and verbal prayer extended. Spoke with Pallaitive Care RN and Center Director Lead Teacher. This parts data writer will take pt outside for fresh air as long as pt is willing and can tolerate it.
--- NOTE | 2021-10-03 17:25 | NUR ---
SHIFT SUMMARY PATIENT IS ALERT AND ORIENTED. PATIENT EXPRESSED SUICIDAL THOUGHTS EARLIER IN SHIFT. SEE PRIOR NOTE. PATIENT IS SOUNDING BETTER. PATIENT WAS ALLOWED TO GO OUTSIDE WITH SPIRITUAL CARE. PATIENT WAS ORDERED PIZZA BY PALLATIVE CARE. MOOD SEEMS BETTER. VITAL SIGNS REVIEWED. PATIENT HAS HAD NO COMPLAINTS OF PAIN, NAUSEA, SOB OR VOMITTING THIS SHIFT. BED IN LOCKED AND LOWEST POSITION. CALL LIGHT IN PLACE. WILL MONITOR UNTIL SHIFT CHANGE.
[2021-10-04 05:33] LABS: International Normalized Ratio 2.51; Prothrombin Time Results 24.8 Sec (9.7-11.5)
--- NOTE | 2021-10-04 06:23 | NUR ---
SHIFT SUMMARY PATIENT ALERT AND ORIENTED. MEDICATED PER EMAR FOR PAIN, SLEEP, AND ANXIETY. NO ACUTE ISSUES NOTED OVERNIGHT. CALL LIGHT WITHIN REACH. REPORT GIVEN TO ONCOMING RN.
--- NOTE | 2021-10-04 13:00 | NUR ---
Pasquale is ambulating in the halls today and being active. Will suggest a team meeting this week to review extended needs. He has a polst on file for full treatment from 2020. With his neurolgical changes and his cardiac factors would suggest we discuss cpr options. Will suggest they take him outside every few days.
--- NOTE | 2021-10-04 16:38 | NUR ---
SHIFT SUMMARY PATIENT IS ALERT AND ORIENTED. PATIENT HAS HAD NO ACUTE EVENTS THIS SHIFT. PATIENT WAS UNHAPPY ABOUT MENU ITEMS AND DIET ORDER WAS CHANGED TO PATIENTS REQUEST, DR ANDERSON. VITAL SIGNS REVIEWED. PATIENT HAS NOT COMPLAINED OF PAIN, NAUSEA, SOB OR VOMITTING THIS SHIFT. PATIENT HAS BEEN IND IN ROOM AND HALLWAYS. BED IN LOCKED AND LOWEST POSITION. CALL LIGHT IN PLACE. WILL MONITOR UNTIL END OF SHIFT.
--- NOTE | 2021-10-05 00:39 | NUR ---
71 year old PT with sycope & stroke or seizure type activity admitted nearly a month ago from [facility]. DC planning involved. PT is [facility] PT gets rx from [facility] & has served 6 years in [employer] with benefits from [employer]. PT says he was at for about 1 year prior to event. PT has menory deficits & tonight he is very irritable & wants to talk to charge account clerk about his irritation with this RN. [facility] & she noted his agitation despite scheduled & PRN RX. PT CO neuropathy requested neurontin which is listed as a allergen which causes seizures. PT has psych eval pending DR Hernandez for same behavior reported last night. Does not redirect well very impatient & demanding for RX & wants his toenails cut with anger toward this RN & MD who did not immediately produce desired rx or tx. Reviewed [facility] & [facility] records PT on coumadin & dosing per pharmancy. 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 PT places gait belt on prior to indep ambulation & uses FWW indep. 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 Acknowledgement of frustration to PT but he continues irritated with staff splitting. irrigator head Sharon updated on psych eval pending current irritation.
[2021-10-05 06:01] LABS: International Normalized Ratio 2.58; Prothrombin Time Results 25.5 Sec (9.7-11.5)
--- NOTE | 2021-10-05 06:18 | NUR ---
PT has variable mood with irritability with aggitation & anxiety. Very inpatient at times & has requests then forgets what we are working on & becomes delusional about motives of staff trying to meet requests. PT has complex medical hx with poor memory for dates & details. Hx of aortic valve replacement on coumadin with dosing per pharmacy. 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 Has psych eval pending for simulair type anger towards staff who are caring for them. This am he is more friendly & takes rx for GERD & hypothyroidism. Able to ambulate safely on medical unit with FWW. PT applies gait belt prior to ambulation even though he is independent.
--- NOTE | 2021-10-05 18:28 | NUR ---
NO ACUTE CHANGES THIS SHIFT. PATIENT AWAITING PLACEMENT AT SNF. UP INDEPENDENTLY WALKING IN HALLS. IRRIITABLE THIS AM, BUT THAT RESOLVED THROUGHOUT THE DAY. NO NEW CONCERNS THIS SHIFT. VSS, ON RA.
--- NOTE | 2021-10-06 04:12 | NUR ---
SHIT SUMMARY - NO ACUTE EVENTS T/O SHIFT. PT FREQUENTLY AMBULATING IN THE EVENING BEFORE BED. PT CONTINUES TO BE ANXIOUS AND IRRITABLE. TONIGHT HE WAS CONCERNED ABOUT INCREASING BLE EDEMA, EDEMA RELATED WOUNDS AND MILD DRAINAGE FROM THOSE WOUNDS. I TOOK PHOTOS OF THE EDEMA AND WOUNDS AND PLACED THEM IN PT'S CHART. PT WAS MEDICATED FOR ANXIETY PER EMAR ALTHOUGH STILL REPORTED DIFFICULTY SLEEPING. PT REPORTED 5/10 NEUROPATHIC PAIN. PT IS AOX4 BUT HAS DIFFICULTY REMEMBERING RECENT EVENTS AND HE IS SUSPICIOUS OF STAFF MOTIVATION.
[2021-10-06 07:14] LABS: International Normalized Ratio 2.55; Prothrombin Time Results 25.2 Sec (9.7-11.5)
[2021-10-06 07:29] LABS: Anion Gap 4 mmol/L (6-16); Blood Urea Nitrogen 23 mg/dL (8-24); Bun/Creatinine Ratio 31.6 (12.0-20.0); CO2, Blood 31 mmol/L (21-32); Calcium, Blood 9.2 mg/dL (8.5-10.1); Chloride, Blood 106 mmol/L (98-108); Creatinine, Blood 0.73 mg/dL (0.60-1.20); Digoxin (Lanoxin) 0.66 ug/mL (0.80-2.00); Glomerular Filtration Rate 98 (60-); Glucose, Blood 102 mg/dL (70-99); Potassium, Blood 3.6 mmol/L (3.5-5.5); Sodium, Blood 141 mmol/L (136-145)
--- NOTE | 2021-10-06 18:16 | NUR ---
SHIFT SUMMARY PT A&OX4 AND IN PLEASENT MOOD T/O SHIFT. PT REQUESTED DR. REYES @ BLE EDEMA THIS SHIFT, PLAN TO START DIURETIC PER DR. GOYAL. UP TO AMBULATE IN HALLS MULTIPLE TIMES W/ STEADY GAIT T/O SHIFT. CALL LIGHT W/IN REACH. TOLERATING PO INTAKE. VSS. PLACEMENT.
--- NOTE | 2021-10-07 04:22 | NUR ---
SHIFT SUMMARY - AOX4, NO ACUTE EVENTS T/O SHIFT. PT STARTED THE SHIFT CALM AND COOPERATIVE BUT GREW RESTLESS THROUGH THE NIGHT HE WAS UNABLE TO SLEEP. PT RECIEVED PRN MEDICATIONS PER EMAR TO HELP WITH ANXIETY BUT STILL HAD DIFFICULTY SLEEPING. PT WALKED THE HALLS FREQUENTLY TO HELP HIMSELF CALM DOWN FROM THE FRUSTRATION OF NOT BEING ABLE TO SLEEP. PT C/O OF NECK PAIN AND TALKED ABOUT WANTING SOMETHING STRONGER THAN HIS PRN TYLENOL.
[2021-10-07 06:33] LABS: International Normalized Ratio 2.7; Prothrombin Time Results 26.6 Sec (9.7-11.5)
--- NOTE | 2021-10-07 17:28 | NUR ---
SHIFT SUMMARY- PT COOPERATIVE WITH MEDICATION PASS THIS MORNING. PT APPETITE GOOD. PT AMBULATE AROUND UNIT SEVERAL TIMES. VSS. PT CONFUSED AT TIMES ABOUT CARE. PT EDEMA STILL +2 BUT WEEPING IN REDUCED. LEMUEL HOSE IN PLACE WITH LEGS ELEVATED. PT RESTING NOW WITH CALL LIGHT IN REACH. PT INDEPENDANT IN ROOM.
--- NOTE | 2021-10-08 04:29 | NUR ---
SUMMARY: PT A/OX3 BUT IS OFTEN ANXIOUS AND FORGETFULL RE: CARE RECIEVED. HE WORD SEARCHES AND REPEATS HIMSELF WITH REMINDERS AND EDUCATION ATTEMPTED T/O NOCTE. HE ASKED MULTIPLE TIMES WHETHER AN ASSESSMENT WAS PERFORMED, REQUESTED MEDS AGAIN AFTER THEY'D RECENTLY BEEN RECIEVED AND STATED HE PLANNED TO SLEEP BUT WAS UP WANDERING HALLS MUCH OF THE NIGHT. HE ALSO REQUESTED A PSYCH CONSULT AGAIN SO PAPERWORK WAS FAXED D/T CX APPEARING NOT TO HAVE OCCURED YET. HE C/O LEG PAIN AND GAS W/TYLENOL AND SIMETHICONE RECIEVED PRN. PT ALSO REQUESTED SLEEP AID SO MELATONIN + TRAZADONE WERE PROVIDED. LEGS REMAIN EDEMATOUS WHICH IS DISTRESSING TO HIM. LEMUEL HOSE ARE INTACT AND STAFF ENCOURAGED/REITTERATED BLE ELEVATION AND REST. HE WAS COMPLIANT TOWARD LATTER PART OF SHIFT AND SLEPT SOME IT SEEMS. NO ACUTE CHANGES, VSS/AFEBRILE. PLACEMENT PENDING. WCTM AND REPORT TO DAY RN.
[2021-10-08 05:42] LABS: International Normalized Ratio 2.48; Prothrombin Time Results 24.5 Sec (9.7-11.5)
--- NOTE | 2021-10-08 18:24 | NUR ---
SHIFT SUMMARY PT HAS BEEN WALKING THE HALLS WITH A WALKER PERIODICALLY THROUGHOUT SHIFT. BILAT LE EDEMA. WHEN PT IS IN THE ROOM HE ELEVATES HIS LEGS. BOTH LEGS ARE WRAPPED WITH COMPRESSION SOCKS ON. VSS. A&O X3. AWAITING BED AVAILABILITY FOR PLACEMENT AT SNF.
[2021-10-09 05:50] LABS: International Normalized Ratio 2.61; Prothrombin Time Results 25.7 Sec (9.7-11.5)
--- NOTE | 2021-10-09 05:55 | NUR ---
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 PT IS FULL CODE. ALERT AND ORIENTED X3, NO WEAKNESS NOTED. HE HAS BEEN AMBULATING THE HALLS REGULARLY. INDEPENDENT WITH FWW. PRESSURED SPEECH. TENDS TO FIXATE ON SOME THINGS. PLEASANT, FOLLOWING DIRECTIONS. AWAITING PLACEMENT.
--- NOTE | 2021-10-09 17:58 | NUR ---
SHIFT SUMMARY PT IS A&O X 3. VSS. BEEN AMBULATING THE HALLS WITH FWW INDEPENDENTLY. THIS AFTERNOON PT WAS ANXIOUS AND FIDGETY. OFFERED ANTI ANXIETY MEDICATION AND HE AGREED TO TAKE IT. SEEMS TO HAVE CALMED AND APPEARS RELAXED. WILL HAVE MOMENTS OF CONFUSION. AWAITING SNF/REHAB PLACEMENT.
--- NOTE | 2021-10-10 04:24 | NUR ---
SHIFT SUMMARY: A/OX3-4, CAN BE FORGETFUL AT TIMES. TENDS TO FIXATE ON CERTAIN TOPICS. PT IS ADLIB AND INDEPENDENT WITH ADL'S, OFTEN WALKS IN HALLWAY AND CAN BE VERY RESTLESS AT TIMES. TONIGHT PT APPEARS TO BE RESTING WELL WHEN ROUNDING. NO COMPLAINTS OF SIGNIFICANT PAIN. BED REMAINS IN LOW POSITION, CALL ENRIQUEZ AND BELONGINGS IN REACH.
[2021-10-10 05:42] LABS: International Normalized Ratio 2.56; Prothrombin Time Results 25.3 Sec (9.7-11.5)
--- NOTE | 2021-10-10 15:18 | NUR ---
SHIFT SUMMARY NO ACUTE CHANGES TO PRESENT THIS SHIFT. PT CONTINUES TO WAIT FOR PLACEMENT. AMBULATES IN CUEVAS ALL DAY LONG OR SITS IN LOBBY. NO C/O PAIN. MEDS WHOLE WITH H2O. PT REQUESTING HCTZ CHANGED TO 25mg AND DIET TO HAVE ASPIRATION PRECAUTIONS REMOVED; DR FRANCO UPDATED WHEN HERE TO SEE PT. NEW ORDERS PLACED. NO FURTHER C/O. DENIED NEEDS AT THIS TIME. CALL LT IN REACH.
--- NOTE | 2021-10-11 04:05 | NUR ---
SHIFT SUMMARY: A/OX4, ADLIB AMBULATION AND INDEPENDENT WITH ADL'S & REPOSITIONING IN BED. NO COMPLAINTS OF SIGNIFICANT PAIN THROUGHOUT THE NIGHT. PT APPEARED TO BE RESTING COMFORTABLE WHEN ROUNDING. NO ACUTE CHANGES THIS SHIFT. BED IN LOW POSITION, CALL ENRIQUEZ AND BELONGINGS IN REACH, PT CALLS APPROPRIATELY.
[2021-10-11 05:18] LABS: International Normalized Ratio 2.35; Prothrombin Time Results 23.3 Sec (9.7-11.5)
--- NOTE | 2021-10-11 16:19 | NUR ---
SHIFT SUMMARY PATIENT IS ALERT AND ORIENTED. PATIENT HAS BEEN IND IN ROOM AND HALLS. PATIENT HAS HAD NO COMPLAINTS OF PAIN, NAUSEA, SOB OR VOMITTING. PATIENT HAS HAD NO ACUTE EVENTS THIS SHIFT. VITAL SIGNS REVIEWED. BED IN LOCKED AND LOWEST POSITION. CALL LIGHT IN PLACE. WILL MONITOR UNTIL SHIFT CHANGE.
--- NOTE | 2021-10-11 19:19 | NUR ---
Patient approached nursing station and said he was not doing well & on the verge of a psychotic breakdown. He verbalizied feeling angry & upset, feeling like staff is not listening to him. He said he feels suicidal and we don't want a story of someone jumping out of a hospital to end up on [employer]. Patient then began talking about conspiracy theories and [employer] controlling the parties. Patient said his room was dark and he didn't feel safe, he was mad that his room was dark. Staff reminded the patient that he asked for the blinds to be closed so he could sleep. Patient doesn't remember asking staff to do that. 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 He stated he worked Nights for years. This RN asked about his sleeping habits and if he was able to get on a regular sleeping schedule since retiring. Patient stated he only gets 5 hours of sleep at the most. Patient is angry that he is not getting psychiatric help, and is just being told to relax. We discussed how he has tried different PO meds for sleep, that have been ineffective. Staff called the on-call Matt to come meet with him, and called the MD. Patient happy with this, and apolgized for talking so much, and doing the wrong thing, staff reminded him that he is doing the right thing by voicing his concerns and asking for help to keep him safe. Spiritual care came, patient wanted to meet in a chapel, but RN reminded patient that we discussed safety & it was not safe for him to leave the floor. Patient agreed not to leave floor. Patient is currently with speaking with the Matt.
--- NOTE | 2021-10-11 19:22 | NUR ---
NURSE NOTE PATIENT CAME UP TO MYSELF AND NURSE VIMAL ABOUT POSSIBLE SUICIDIAL THOUGHTS. PATIENT HAS HAD INCREASING ANXIETY AND CONFUSED THOUGHTS. THIS RN CALLED SPIRITUAL CARE, REACHED NURSING RENEWAL SPECIALIST AMY AND CALLED BRUSH FINISHER SPIRITUAL CARE. SPIRITUAL CARE IS TALKING WITH PATIENT CURRENTLY. THIS NURSE UPDATED ONCOMING NOC NURSE ABOUT SITUATION. NOC NURSE IS CALLING DR ABOUT SITUATION AND POSSIBLE ADDITION OF ORDERS.
--- NOTE | 2021-10-11 20:04 | NUR ---
Spiritual Care - Callback Pt. is in the hallway with nurse when I arrive, and agrees to meet with me in the waiting room area. Pt. displays evidence of high anxiety and verbalized that he had previous thoughts of suicide. Through theraputic listening and pastoral relationship counselor the Pt. did settle down. Prayed with Pt. and affirmed that I would return in the morning to see him. Pt. verbalized gratitude for the spiritual care visit, and this business systems advisor walked the pt. back to his room.
--- NOTE | 2021-10-11 20:13 | NUR ---
NURSE NOTE: UPON SHIFT CHANGE THIS RN RECEIVED REPORT FROM KOSTAS RN AND VIMAL RN UPDATING PTS CURRENT STATE OF HEIGHTENED ANXIETY AND AGGITATION. REPORTED COMMENTS THAT PT IS HAVING INTRUSIVE THOUGHTS ABOUT "JUMPING OUT OF THE WINDOW". NOTED THAT PATIENT HAS BEEN HAVING INCREASING ANXIETY, IRRITABILITY AND AGGITATION OVER THE PAST SEVERAL DAYS. PT REPORTING FEELING EXTREMELY ANXIOUS AND DEPRESSED BEING IN THE HOSPITAL AND STAYING IN HIS ROOM-PT REMINDED HE IS ENCOURAGED AND ABLE TO WALK IN THE HALLS ON THE UNIT WHEN DESIRED. SPIRITUAL CARE SPEAKING WITH PATIENT IN THE [facility] BY THE ELEVATORS. PATIENT PREVIOUSLY REPORTED TO THIS RN THAT HE HAS FELT SO ANXIOUS ABOUT LEAVING THE HOSPITAL THAT HE JUST WANTS TO "JUMP OUT OF THE WINDOW". PT THEN FURTHER EXPLAINED THAT HE WOULD NEVER HURT HIMSELF AND DOES NOT DESIRE TO HURT HIMSELF BUT DOES HAVE THOUGHTS ABOUT NOT ENDURING CURRENT SITUATION ANYMORE. CONTACTED PATSY FARIA TO INFORM AND UPDATE ABOUT PATIENTS CURRENT SITUATION. REQUESTING ADDITIONAL MEDICATION FOR SLEEP AND/OR AGGITATION & ANXIETY. PATSY FARIA ORDERED AMBIEN IN ADDITION TO TRAZADONE- DISCUSSED WITH PATSY FARIA THAT PALLIATIVE CARE REPORTED CONCERNS OF ADVERSE MEDICATION SIDE EFFECTS OF AMBIEN BEING ADMINISTERED WITH BUSPAR, COULD CAUSE EXACERBATED SYMPTOMS. REPORTED THAT PATIENT HAS PREVIOUSLY TAKEN AMBIEN AND DID NOT ASSIST IN SYMPTOMS. PATSY THEN DISCONTINUED AMBIEN MEDICATION. PALLIATIVE CARE PREVIOUSLY RECOMMENDED SEROQUEL ADMINISTRATION- RECOMMENDED THIS MEDICATION TO PATSY FARIA WHO GAVE TELEPHONE ORDER FOR SCHEDULED PO SEROQUEL 50MG TO BE TAKEN AT BEDTIME. PATSY FARIA ORDERED PSYCH CONSULTATION. PATSY FARIA NOT ORDERING SI PRECAUTIONS AT THIS TIME. PT REPORTS NOT WANTING TO HARM SELF AT THIS TIME, BUT THAT INTRUSIVE THOUGHTS ARE PRESENT. PT AGREES TO COMMUNICATE WITH STAFF AND REPORT IF FEELINGS OF SELF HARM ARE PRESENT AND OR CHANGE. PATSY FARIA REQUESTED TO BE INFORMED IF PT FURTHER VERBALIZES SI THOUGHTS OR INTENTIONS. PATIENT INFORMED OF NEW MEDICATION SEROQUEL SCHEDULED TONIGHT FOR INSOMNIA. PATIENT REPORTS FEELING BETTER KNOWING A NEW MEDICATION WILL BE ADMINISTERED TO HELP WITH SLEEP AND A PLAN FOR A PSYCH EVALUATION. PATSY FARIA APPROVED FOR SEROQUEL AND TRAZADONE TO BE ADMINISTERED TOGETHER.
--- NOTE | 2021-10-12 04:26 | NUR ---
SHIFT SUMMARY: PLEASE REVIEW PRIOR RN NOTE FOR ADDITIONAL UPDATES AND INFORMATION. POST ADMINISTRATION OF NIGHT TIME MEDICATIONS PT REPORTED FEELING CALMER AND APPEARED TO BE LESS IRRITABLE. NO REPORTED INTRUSIVE THOUGHTS THROUGHOUT THE NIGHT. PT REMAINS ADLIB AND INDEPENDENT WITH ADL'S. NO SIGNIFICANT REPORTS OF PAIN. CONTINUES TO CALL APPROPRIATELY. BED IN LOW POSITION, CALL ENRIQUEZ AND BELONGINGS IN REACH.
[2021-10-12 05:58] LABS: International Normalized Ratio 2.47; Prothrombin Time Results 24.4 Sec (9.7-11.5)
--- NOTE | 2021-10-12 16:27 | NUR ---
SHIFT SUMMARY PT IS A&O, INDEPENDENT IN RM AND IN HALLS. GOING FOR WALKS THROUGH OUT THE DAY. NO C/O PAIN. CONTINUES TO WAIT FOR D/C. STAFF FROM [facility] HERE THIS AM TO VISIT WITH PT AND RETURNED THIS AFTERNOON, BUT PT NOT IN HIS RM. STAFF WAITED BUT PT DID NOT RETURN IMMEDIATELY. STAFF LEFT INFO PT REQUESTED ALONG WITH A DESERT. PER REPORT, [employer] WAITING FOR INSURANCE CLEARANCE FOR PLACEMENT. PT ABLE TO MAKE NEEDS KNOWN.
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
[2021-10-13 05:48] LABS: International Normalized Ratio 2.58; Prothrombin Time Results 25.5 Sec (9.7-11.5)
--- NOTE | 2021-10-13 16:45 | NUR ---
left message with case management per pt request.
--- NOTE | 2021-10-13 17:49 | NUR ---
SHIFT SUMMARY- PT INDEPENDANT IN ROOM. VSS. PT C/O PAIN, MEDICATED PER EMAR. PT REQUESTING REGULAR DIET, WILL F/U WITH PT COOPERATIVE WITH ALL CARE. PT RESTING NOW WITH CALL LIGHT IN REACH.
--- NOTE | 2021-10-13 20:20 | NUR ---
pt having extreme anxiety at shift change request to have zinc furnace charger at bedside & he says he is aggitated because he cannot find his wallet which he may not have taken to hospital on admission. Psych MD Hernandez saw PT today & made medication changes. now med not given by day RN she said he had not had anxiety to warrant now order administration. Discussed med changes with PT & the use of PRN med seroquel 25 Q 4 prn.
--- NOTE | 2021-10-13 20:35 | NUR ---
PT did not have wallet when he was admitted to this floor none in security, he was brought in EMS from [facility] with stoke or seizure activity. PT cooperative with oral seroquel 100 mg & is up amb with FWW. Requests shower with stand by. Continues irritated demeaning statements to staff when they attempt to address his concerns.
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
[2021-10-14 05:38] LABS: International Normalized Ratio 2.53
--- NOTE | 2021-10-14 15:55 | NUR ---
SHIFT SUMMARY- PT PLEASANT AND COOPERATIVE TODAY. FAMILY AT BEDSIDE. VSS. APPETITE GOOD. NO ACUTE CHANGES. PT INDEPENDANT IN ROOM. CALL LIGHT IN REACH.
--- NOTE | 2021-10-15 04:59 | NUR ---
ASSUMED CARE OF PT AT 1900 HRS. NO ACUTE CHANGES THIS SHIFT. PT IS A&OX4, INDEPENDENT WITH CARES AND IS ABLE TO MAKE NEEDS KNOWN. PT HAS BEEN TOLERATING DIET, RESTS BETWEEN CARES, SLEEPS OFF AND ON ALL NIGHT, SLEEPS 5+ HOURS. WILL CONTINUE TO MONITOR AND GIVE HANDOFF REPORT TO DAY SHIFT RN.
[2021-10-15 06:05] LABS: International Normalized Ratio 2.39; Prothrombin Time Results 23.7 Sec (9.7-11.5)
[2021-10-15] MEDS ORDERED: WARF5 PO (12:09)
[2021-10-15] MEDS ORDERED: WARF7.5 PO (12:10)
[2021-10-15] MEDS ORDERED: QUET100 PO (12:11)
--- NOTE | 2021-10-15 13:01 | NUR ---
Spiritual Care Visit - Nurse Request Pt. is sitting up eating lunch, and welcomes my visit. Pt. is displaying evidence of anxiety. With significant engagement and theraputic listening Pt. finally de-escalates. Provided the Pt. with some devotional material that I had prepared. With a calming presence Pt. finally displays evidence of trust. Those preparing to dicharge the Pt. arrive, and the pt. verbalized gratitude for the devotional material and spiritual care.
--- NOTE | 2021-10-15 16:33 | NUR ---
Patient discharging back to [facility] with sister as caregiver. Spiritual care checked in with patient today. Patient worked with therapy today. Reviewed discharge teaching and medication list with patient & sister. Patient ready & eager to go home today. Meds [place]ed to [place] pharmacy.
== END 2021-10-15 14:35 | disposition home or self-care (01) | DRG 208 ==
LOC: ER 18:34 → MEDS 22:22 → ICUW 22:22 → MEDS 09-10 18:43
PROVIDERS: Emergency Medicine; Internal Medicine; Internal Medicine Critical Care Medicine; Student in an Organized Health Care Education/Training Program; ADMIT Internal Medicine
PROC: 5A1945Z Respiratory Ventilation, 24-96 Consecutive Hours (ICD-10-PCS; principal; 2021-09-06)
PROC: 0BH18EZ Insertion of Endotracheal Airway into Trachea, Via Natural or Artificial Opening Endoscopic (ICD-10-PCS; 2021-09-06)
PROC: 8E0ZXY6 Isolation (ICD-10-PCS; 2021-09-06)
PROC: 3E0333Z Introduction of Anti-inflammatory into Peripheral Vein, Percutaneous Approach (ICD-10-PCS; 2021-09-06)
PROC: XW0DXM6 Introduction of Baricitinib into Mouth and Pharynx, External Approach, New Technology Group 6 (ICD-10-PCS; 2021-09-06)
PROC: XW033E5 Introduction of Remdesivir Anti-infective into Peripheral Vein, Percutaneous Approach, New Technology Group 5 (ICD-10-PCS; 2021-09-07)
PROC: 3E03329 Introduction of Other Anti-infective into Peripheral Vein, Percutaneous Approach (ICD-10-PCS; 2021-09-07)
DX: U07.1 COVID-19 (principal); N17.0 Acute kidney failure with tubular necrosis; J96.01 Acute respiratory failure with hypoxia; J12.82 Pneumonia due to coronavirus disease 2019; J15.211 Pneumonia due to Methicillin susceptible Staphylococcus aureus; G45.9 Transient cerebral ischemic attack, unspecified; I95.9 Hypotension, unspecified; G40.909 Epilepsy, unspecified, not intractable, without status epilepticus; I48.0 Paroxysmal atrial fibrillation; Z95.2 Presence of prosthetic heart valve; G47.00 Insomnia, unspecified; F41.9 Anxiety disorder, unspecified; I10 Essential (primary) hypertension; I87.8 Other specified disorders of veins; I71.4 Abdominal aortic aneurysm, without rupture; E03.9 Hypothyroidism, unspecified; R41.89 Other symptoms and signs involving cognitive functions and awareness; E66.9 Obesity, unspecified; G89.4 Chronic pain syndrome; G62.9 Polyneuropathy, unspecified; D69.6 Thrombocytopenia, unspecified; Z98.890 Other specified postprocedural states; Z88.8 Allergy status to other drugs, medicaments and biological substances; Z79.899 Other long term (current) drug therapy; R29.713 NIHSS score 13; K74.60 Unspecified cirrhosis of liver; Z79.01 Long term (current) use of anticoagulants; Z70.1 Counseling related to patient's sexual behavior and orientation
CPT/HCPCS: 0241U; 31500; 36415; 36600; 51702; 70450; 70496; 70498; 71045; 71275; 80048; 80053; 80061; 80069; 80162; 80202; 81001; 82803; 82947; 83036; 83735; 83880; 84100; 84484; 85025; 85610; 87070; 87077; 87147; 87186; 87205; 92507; 92523; 92526; 92610; 93005; 93010; 93971; 94002; 94003; 94760; 94762; 96365-59; 96367-59; 96375-59; 96376-59; 97110; 97112; 97116; 97129; 97129-GO-CO; 97130; 97130-GO-CO; 97162; 97166; 97530; 97535; 99291-25; A9270; C1751; C8929; C9113; C9399; G0480; J0248; J0330; J1100; J1650; J1953; J2060; J2405; J2700; J2704; J3010; J3370; J7040; J7050; J7060; Q9957; Q9967

== ENCOUNTER 2021-10-31 11:41 | Emergency (ER) | payer OTHER ==
[~2021-10-31] VITALS: Ht 185.4 cm; Wt 95.2 kg
[~2021-10-31 11:41] MED LIST changes: +ACETAZOLAMIDE PO; +ALEVAZOL56.7 G1 TOP; +DULO30 PO; +ENOXAPARIN150 MG/1 M SC; +HYDCHL25 PO; +HYDPAM25; +POTA10T PO; +QUET100 PO
[2021-10-31] MEDS ORDERED: CYCL10 PO (14:19)
== END 2021-10-31 16:17 | disposition home or self-care (01) ==
LOC: ER 11:41
DX: M48.56XA Collapsed vertebra, not elsewhere classified, lumbar region, initial encounter for fracture (principal); M51.36 Other intervertebral disc degeneration, lumbar region; E03.9 Hypothyroidism, unspecified; I10 Essential (primary) hypertension; X50.9XXA Other and unspecified overexertion or strenuous movements or postures, initial encounter; Z88.8 Allergy status to other drugs, medicaments and biological substances; Z79.899 Other long term (current) drug therapy; Z79.01 Long term (current) use of anticoagulants; Z86.73 Personal history of transient ischemic attack (TIA), and cerebral infarction without residual deficits
CPT/HCPCS: 72100; A9270